=== PATIENT | female | born 1960 | race Caucasian/White ===

== ENCOUNTER → 2018-02-03 | Outpatient (CLI) | payer BC ==
--- NOTE | 2018-02-04 11:03 | Diagnostic Imaging Report ---
INDICATION: Routine screening. COMPARISON: 06/06/2015 and 06/04/2014. TECHNIQUE: 2D and 3D bilateral screening mammography was performed with CAD. FINDINGS: Both breasts remain heterogeneously dense, limiting the sensitivity of mammography. The parenchymal pattern is stable. No mass or malignant appearing microcalcifications are seen. The axillae are unremarkable. IMPRESSION: No mammographic features suspicious for malignancy are identified. ACR BI-RADS Category 1: Negative. Result letter will be mailed to the patient. Note: At least 10% of breast cancer is not imaged by mammography. Dictated by: Dictated on workstation # [id number]
== END ==
LOC: RAD 14:28
PROVIDERS: ATTEND Nurse Practitioner Primary Care
DX: Z12.31 Encounter for screening mammogram for malignant neoplasm of breast (principal)
CPT/HCPCS: 77067

== ENCOUNTER → 2018-05-02 | Outpatient (CLI) | payer BC ==
--- NOTE | 2018-05-02 12:18 | Diagnostic Imaging Report ---
PROCEDURE: CT abdomen and pelvis without contrast. TECHNIQUE: Multiple contiguous axial images were obtained through the abdomen and pelvis without the use of intravenous contrast. INDICATION: Urinary tract infection. FINDINGS: The previous CT abdomen/pelvis exam of 09/17/2013 failed to show any sign of an acute abnormality of the abdomen or pelvis. There was no evidence for nephrolithiasis either. On this study, there is still no evidence for a calculus within the right kidney, but there is a 1-2 mm nonobstructive calculus in the inferior pole of the left kidney. There is no evidence for urolithiasis, and the kidneys do not appear to be obstructed. There is no sign of a solid renal mass either. There is a 6 mm rounded area of low density in the dome of the liver. This finding was present on the prior exam and does not seem to have changed significantly. I suspect that this is a small cyst. The prior exam did suggest fatty metamorphosis of the liver. That finding is not as conspicuous on this exam. The liver is otherwise unremarkable. The spleen, pancreas, adrenals, gallbladder, aorta, and inferior vena cava are unremarkable for an acute abnormality. The stomach is partially filled with particulate matter and consequently difficult to assess. The appendix was visualized and is not abnormally thickened. There does appear to be a fair amount of fecal material throughout the colon. There is no pelvic mass or free fluid collection noted. The uterus and urinary bladder are grossly unremarkable. The bone windows show no sign of a fracture or of a destructive lesion. The lung bases are clear. IMPRESSION: 1. There is no evidence for an acute abnormality of the abdomen or pelvis. 2. There is a 1-2 mm nonobstructive calculus within the left kidney. 3. The rounded area of low density in the dome of the liver is most likely a cyst. Dictated by: Dictated on workstation # [id number]
== END ==
LOC: RAD 09:02
PROVIDERS: ATTEND Nurse Practitioner Primary Care
DX: N20.0 Calculus of kidney (principal); K76.89 Other specified diseases of liver; N39.0 Urinary tract infection, site not specified
CPT/HCPCS: 74176

== ENCOUNTER → 2018-05-12 | Outpatient (CLI) | payer BC ==
--- NOTE | 2018-05-12 14:13 | Diagnostic Imaging Report ---
INDICATION: Nephrolithiasis. FINDINGS: Bowel gas pattern is nonspecific. There are no abnormal abdominal calcifications. Osseous structures are unremarkable. IMPRESSION: 1. Nonspecific bowel gas pattern. 2. No definite stones appreciated by plain film radiography. Dictated by: Dictated on workstation # [id number]
== END ==
LOC: RAD 13:15
PROVIDERS: ATTEND Urology
DX: N20.0 Calculus of kidney (principal)
CPT/HCPCS: 74018

== ENCOUNTER 2018-07-29 11:17 | Emergency (ER) | payer BC ==
[~2018-07-29] VITALS: Ht 160 cm; Wt 56.7 kg
--- OUTSIDE RECORDS SUMMARY | 2018-07-29 11:22 | XMS REPORT ---
Author Author SOFÍA LEWIS [facility] Address [address] [place] [address] Care Team Providers Care Video And Sound Recorder Name Role Phone SOFÍA LEWIS Unavailable PROBLEMS Type Condition ICD9-CM Code JUK50-SX Code Onset Dates Condition Status SNOMED Code Problem HTN (hypertension) I10 Active 32772591 Problem Renal calculus, left N20.0 Active 96008058 Problem Chronic left hip pain M25.552 Active 01566096 Problem Mixed hyperlipidemia E78.2 Active 775754530 Problem Diabetic polyneuropathy associated with type 2 diabetes mellitus E11.42 Active 162358191 Problem Insomnia, unspecified type G47.00 Active 807670085 Problem Piriformis muscle pain M79.1 Active 00745054 Problem Type 2 diabetes mellitus without complication, without long-term current use of insulin E11.9 Active 324174633 Problem Chest wall pain R07.89 Active 168452679 ALLERGIES Substance Reaction Event Type Date Status Sulfamethoxazole Unknown Drug Allergy Apr, Active Lyrica crying/increased emotions Drug Allergy Apr, Active Lisinopril cough Drug Allergy Apr, Active ENCOUNTERS Encounter Location Date Diagnosis [facility] [place] [id number] [place] [address] May, Increased urinary frequency R35.0 ; Frequent UTI N39.0 ; Renal calculus, left N20.0 ; Encounter for hepatitis C screening test for low risk patient Z11.59 and Chronic left hip pain M25.552 [facility] [place] [id number] [place] [address] 73711- 2448 Apr, Dysuria R30.0 [facility] [place] [address] [place] [address] 05328- 9128 Apr, Hx of renal calculi Z87.442 and Dysuria R30.0 [place] [address], [place] [address] 24 Apr, 2018 Dysuria R30.0 and Hx of renal calculi Z87.442 [place] [id number] [place] [address] 86242- 7689 Apr, [place] [id number] [place] [address] 59799- 5090 Apr, Lower urinary tract symptoms R39.9 [place] [id number] [place] [address] 87664- 8706 Mar, Acute cystitis with hematuria N30.01 [place] [id number] [place] [address] 89946- 0045 Mar, [place] [id number] [place] [address] 73745- 4611 Mar, [place] [id number] [place] [address] 43566- 1263 Mar, [place] [id number] [place] [address] 54884- 2104 Mar, Type 2 diabetes mellitus without complication, without long- term current use of insulin E11.9 ; HTN (hypertension) I10 ; Diabetic polyneuropathy associated with type 2 diabetes mellitus E11.42 ; Insomnia, unspecified type G47.00 ; High risk medication use Z79.899 and Mixed hyperlipidemia E78.2 [place] [address] [place] [address] 70526- 4434 Mar, Type 2 diabetes mellitus without complication, without long- term current use of insulin E11.9 ; HTN (hypertension) I10 and Diabetic polyneuropathy associated with type 2 diabetes mellitus E11.42 [place] [address] [place] [address] 77703- 1023 Feb, [place] [id number] [place] [address] 57981- 1419 Jan, [place] [address] [address]27- 5799 Jan, Type 2 diabetes mellitus without complication, without long- term current use of insulin E11.9 ; HTN (hypertension) I10 and Diabetic polyneuropathy associated with type 2 diabetes mellitus E11.42 [place] [address] [address]70- 1455 December, Well woman exam (no gynecological exam) Z00.00 ; Hyperglycemia R73.9 and Type 2 diabetes mellitus without complication, without long-term current use of insulin E11.9 [place] [address] 23837- 7544 Nov, Type 2 diabetes mellitus without complication, without long- term current use of insulin E11.9 [place] [address] 64987- 3635 Nov, Chest wall pain R07.89 ; Insomnia, unspecified type G47.00 and Allergic state, initial encounter T78.40XA [place] [address] 87270- 2671 Jul, Insomnia, unspecified type G47.00 and Rib pain on left side R07.81 [place] [address] 52288- 7124 Jun, Insomnia, unspecified type G47.00 [facility] [address] [address] Apr, Fluid level behind tympanic membrane of both ears H65.93 [place] [address] 91805- 7233 Apr, [facility] [address] [address] Apr, Acute suppurative otitis media of left ear without spontaneous rupture of tympanic membrane, recurrence not specified H66.002 [place] [address] 66202- 6744 Mar, Insomnia, unspecified type G47.00 ; Piriformis muscle pain M79.1 ; Costochondritis M94.0 and Rib pain on left side R07.81 [facility] [place] [id number] [place] [address] 60388- 0469 Feb, Rib pain on left side R07.81 [facility] [place] [id number] [place] [address] 40290- 0397 Jan, Costochondritis M94.0 [facility] [id number] [place] [address] 62722 -9509 Jan, Costochondritis M94.0 [facility] [place] [id number] [place] [address] 51559- 7477 December, Insomnia, unspecified type G47.00 and Piriformis muscle pain M79.1 [place] [id number] [place] [address] 95137- 4162 Jul, Insomnia, unspecified type G47.00 and Piriformis muscle pain M79.1 [place] [id number] [place] [address] 86089- 6463 May, [place] [id number] [place] [address] 86192- 3209 Feb, [facility] [place] [id number] [place] [address] 40122- 4753 Jan, Wellness examination Z00.00 ; Insomnia, unspecified type G47.00 and Piriformis muscle pain M79.1 [place] [id number] [place] [address] 71582- 5363 Jun, [facility] [place] [id number] [place] [address] 40314- 9892 Apr, Hypertension 401.9 ; Insomnia 780.52 ; Screening breast examination V76.10 and Hip pain 719.45 IMMUNIZATIONS No Known Immunizations SOCIAL HISTORY Never Assessed REASON FOR VISIT UTI symptoms-Vira Pt states she has taken Macrobid, but still having tingling after urinating. States she has to push hard to urinate PLAN OF CARE Activity Details Follow Up if not improving or regular follow up with pcp Reason: VITAL SIGNS Height 63.0 in 2018-04-28 Weight 127.4 lbs 2018-04-28 Temperature 97.4 degrees Fahrenheit 2018-04-28 Heart Rate 100 bpm 2018-04-28 Respiratory Rate 18 2018-04-28 BMI 22.57 kg/m2 2018-04-28 Blood pressure systolic 128 mmHg 2018-04-28 Blood pressure diastolic 72 mmHg 2018-04-28 MEDICATIONS Medication Instructions Dosage Frequency Start Date End Date Duration Status Aspirin Adult Low Dose 81 MG Orally Once a day 1 tablet 24h Active Cipro 500 mg Orally every 12 hrs 1 tablet 12h Apr, Apr, 3 days Active Assure Comfort Lancets 28G 1 subcutaneously Once a day as directed 24h December, Active Tamsulosin HCl 0.4 MG Orally Once a day in the evening 1 capsule Apr, May, 30 day(s) Active iGlucose Test Strips 1 subcutaneously Once a day as directed 24h December, 30 days Active Ambien 10 mg Orally Once a day 1 tablet at bedtime as needed 24h Apr, 30 days Active MetFORMIN HCl ER 500 mg Orally twice a day 20 min before meals 2 tablet December, 30 day(s) Active Magnesium 200 mg Orally Once a day 1 tablet 24h Active Percocet 10-325 MG Orally every 6 hrs 1 tablet as needed 6h Active Losartan Potassium Apr, Active RESULTS No Results PROCEDURES Procedure Date Ordered Result Body Site URINALYSIS, AUTO, W/O SCOPE Apr 28, 2018 URINE CULTURE/COLONY COUNT Apr 28, 2018 INSTRUCTIONS MEDICATIONS ADMINISTERED No Known Medications MEDICAL (GENERAL) HISTORY Type Description Date Medical History kidney stones Medical History insomnia Medical History chronic pain to right posterior hip from torn ligament Medical History rib injury Medical History neuropathy-knees and left leg in hamstring area-comes and goes Surgical History kidney stone basket approx 2003 Surgical History left shoulder tendon release 2007
--- OUTSIDE RECORDS SUMMARY | 2018-07-29 11:22 | XMS REPORT ---
Author Author SOFÍA LEWIS [facility] Address [address] [place] [address] Care Team Providers Care Gluer Machine Operator Name Role Phone SOFÍA LEWIS Unavailable PROBLEMS Type Condition ICD9-CM Code GQF40-RY Code Onset Dates Condition Status SNOMED Code Problem HTN (hypertension) I10 Active 13078223 Problem Renal calculus, left N20.0 Active 87832936 Problem Chronic left hip pain M25.552 Active 82267884 Problem Mixed hyperlipidemia E78.2 Active 597423614 Problem Diabetic polyneuropathy associated with type 2 diabetes mellitus E11.42 Active 131329392 Problem Insomnia, unspecified type G47.00 Active 127191406 Problem Piriformis muscle pain M79.1 Active 68765224 Problem Type 2 diabetes mellitus without complication, without long-term current use of insulin E11.9 Active 335654004 Problem Chest wall pain R07.89 Active 724297200 ALLERGIES Substance Reaction Event Type Date Status Sulfamethoxazole Unknown Drug Allergy May, Active Lyrica crying/increased emotions Drug Allergy May, Active Lisinopril cough Drug Allergy May, Active ENCOUNTERS Encounter Location Date Diagnosis [facility] [id number] [place] [address] 94144- 6176 May, Increased urinary frequency R35.0 ; Frequent UTI N39.0 ; Renal calculus, left N20.0 ; Encounter for hepatitis C screening test for low risk patient Z11.59 and Chronic left hip pain M25.552 [facility] [id number] [place] [address] 02333- 3044 Apr, Dysuria R30.0 [facility] [address] [place] [address] 17573- 3759 Apr, Hx of renal calculi Z87.442 and Dysuria R30.0 [place] [address], [place] [address] 24 Apr, 2018 Dysuria R30.0 and Hx of renal calculi Z87.442 [place] [id number] [place] [address] 43473- 6860 Apr, [place] [address] [id number] [place] [address] 25299- 8709 Apr, Lower urinary tract symptoms R39.9 [place] [address] [id number] [place] [address] 19395- 7272 Mar, Acute cystitis with hematuria N30.01 [place] [address] [id number] [place] [address] 93564- 4812 Mar, [place] [id number] [place] [address] 93821- 8257 Mar, [place] [address] [id number] [place] [address] 49913- 3184 Mar, [place] [address] [id number] [place] [address] 89466- 6540 Mar, Type 2 diabetes mellitus without complication, without long- term current use of insulin E11.9 ; HTN (hypertension) I10 ; Diabetic polyneuropathy associated with type 2 diabetes mellitus E11.42 ; Insomnia, unspecified type G47.00 ; High risk medication use Z79.899 and Mixed hyperlipidemia E78.2 [place] [address] [place] [address] 24444- 2035 Mar, Type 2 diabetes mellitus without complication, without long- term current use of insulin E11.9 ; HTN (hypertension) I10 and Diabetic polyneuropathy associated with type 2 diabetes mellitus E11.42 [place] [address] [place] [address] 01651- 8594 Feb, [place] [id number] [place] [address] 90155- 6480 Jan, [place] [address] 00351- 8913 Jan, Type 2 diabetes mellitus without complication, without long- term current use of insulin E11.9 ; HTN (hypertension) I10 and Diabetic polyneuropathy associated with type 2 diabetes mellitus E11.42 [place] [address] 70194- 7104 December, Well woman exam (no gynecological exam) Z00.00 ; Hyperglycemia R73.9 and Type 2 diabetes mellitus without complication, without long-term current use of insulin E11.9 [place] [address] 46459- 5516 Nov, Type 2 diabetes mellitus without complication, without long- term current use of insulin E11.9 [place] [address] 63091- 4863 Nov, Chest wall pain R07.89 ; Insomnia, unspecified type G47.00 and Allergic state, initial encounter T78.40XA [place] [address] 58472- 5446 Jul, Insomnia, unspecified type G47.00 and Rib pain on left side R07.81 [place] [address] 47770- 7642 Jun, Insomnia, unspecified type G47.00 [facility] [address] [address] Apr, Fluid level behind tympanic membrane of both ears H65.93 [place] [address] 26996- 6985 Apr, [facility] [address] 58[address] -[address]85 Apr, Acute suppurative otitis media of left ear without spontaneous rupture of tympanic membrane, recurrence not specified H66.002 [place] [address] 34532- 9724 Mar, Insomnia, unspecified type G47.00 ; Piriformis muscle pain M79.1 ; Costochondritis M94.0 and Rib pain on left side R07.81 [facility] [id number] [place] [address] 34792- 8979 Feb, Rib pain on left side R07.81 [facility] [id number] [place] [address] 78028- 9354 Jan, Costochondritis M94.0 [facility] [id number] [place] [address] 44752 -7364 Jan, Costochondritis M94.0 [facility] [id number] [place] [address] 51766- 9019 December, Insomnia, unspecified type G47.00 and Piriformis muscle pain M79.1 [place] [id number] [place] [address] 36124- 3033 Jul, Insomnia, unspecified type G47.00 and Piriformis muscle pain M79.1 [facility] [id number] [place] [address] 95956- 8901 May, [facility] [id number] [place] [address] 90172- 6714 Feb, [facility] [id number] [place] [address] 62195- 7001 Jan, Wellness examination Z00.00 ; Insomnia, unspecified type G47.00 and Piriformis muscle pain M79.1 [facility] [id number] [place] [address] 66681- 7547 Jun, [facility] [id number] [place] [address] 41055- 6005 Apr, Hypertension 401.9 ; Insomnia 780.52 ; Screening breast examination V76.10 and Hip pain 719.45 IMMUNIZATIONS No Known Immunizations SOCIAL HISTORY Never Assessed REASON FOR VISIT uti f/u. Pt states she is not any better. She had a scan on 05/02/18 and it showed she also has kidney stones. CJ Velez PLAN OF CARE Activity Details Follow Up 3 Months Reason: Pending Test HEP C ANTIBODY W/ REFLEX HCV Pending Test CULTURE, URINE VITAL SIGNS Height 63.0 in 2018-05-09 Weight 127.9 lbs 2018-05-09 Temperature 97.9 degrees Fahrenheit 2018-05-09 Heart Rate 81 bpm 2018-05-09 Respiratory Rate 18 2018-05-09 BMI 22.65 kg/m2 2018-05-09 Blood pressure systolic 162 mmHg 2018-05-09 Blood pressure diastolic 80 mmHg 2018-05-09 MEDICATIONS Medication Instructions Dosage Frequency Start Date End Date Duration Status Assure Comfort Lancets 28G 1 subcutaneously Once a day as directed 24h December, Active Magnesium 200 mg Orally Once a day 1 tablet 24h Active Ambien 10 mg Orally Once a day 1 tablet at bedtime as needed 24h Apr, 30 days Active Cipro 250 MG Orally every 12 hrs 1 tablet 12h May, May, 5 days Active iGlucose Test Strips 1 subcutaneously Once a day as directed 24h December, 30 days Active Aspirin Adult Low Dose 81 MG Orally Once a day 1 tablet 24h Active Losartan Potassium Apr, Active Percocet 10-325 MG Orally 3 times a day 1 tablet as needed 8h May, Jun, 28 days Active Tamsulosin HCl 0.4 MG Orally Once a day in the evening 1 capsule Apr, May, 30 day(s) Active MetFORMIN HCl ER 500 mg Orally twice a day 20 min before meals 2 tablet December, 30 day(s) Active RESULTS Name Result Date Reference Range UA LONG DIP (IN HOUSE) 2018-05-09 Lot # [id number] Exp date 02/2019 Clarity clear Color yellow Odor yes GLU 1+ ALEXANDREA neg KET neg SG 1.005 BLO neg pH 5.5 Protein neg URO 0.2 NIT neg MICHELE neg Lot # Exp date PROCEDURES Procedure Date Ordered Result Body Site URINALYSIS, AUTO, W/O SCOPE May 09, 2018 URINE CULTURE/COLONY COUNT May 09, 2018 HEPATITIS C AB TEST May 09, 2018 INSTRUCTIONS MEDICATIONS ADMINISTERED No Known Medications MEDICAL (GENERAL) HISTORY Type Description Date Medical History kidney stones Medical History insomnia Medical History chronic pain to right posterior hip from torn ligament Medical History rib injury Medical History neuropathy-knees and left leg in hamstring area-comes and goes Surgical History kidney stone basket approx 2003 Surgical History left shoulder tendon release 2008
--- OUTSIDE RECORDS SUMMARY | 2018-07-29 11:22 | XMS REPORT ---
Author Author SOFÍA LEWIS [facility] Address [address] [place] [address] Care Team Providers Care Field Agronomist Name Role Phone SOFÍA LEWIS Unavailable PROBLEMS Type Condition ICD9-CM Code AKE52-DR Code Onset Dates Condition Status SNOMED Code Problem HTN (hypertension) I10 Active 88498544 Problem Renal calculus, left N20.0 Active 34819645 Problem Chronic left hip pain M25.552 Active 29947302 Problem Mixed hyperlipidemia E78.2 Active 562929649 Problem Diabetic polyneuropathy associated with type 2 diabetes mellitus E11.42 Active 954037727 Problem Insomnia, unspecified type G47.00 Active 577106520 Problem Piriformis muscle pain M79.1 Active 83626056 Problem Type 2 diabetes mellitus without complication, without long-term current use of insulin E11.9 Active 614669143 Problem Chest wall pain R07.89 Active 174074955 ALLERGIES No Information ENCOUNTERS Encounter Location Date Diagnosis [facility] [id number] [place] [address] 11095- 1074 May, Increased urinary frequency R35.0 ; Frequent UTI N39.0 ; Renal calculus, left N20.0 ; Encounter for hepatitis C screening test for low risk patient Z11.59 and Chronic left hip pain M25.552 [facility] [id number] [place] [address] 12629- 9107 Apr, Dysuria R30.0 [facility] [address] [place] [id number] [place] [address] 17669- 4887 Apr, Hx of renal calculi Z87.442 and Dysuria R30.0 [facility] [address] [place] [address] 87241- 1473 Apr, Dysuria R30.0 and Hx of renal calculi Z87.442 [place] [address] [address] 9[address] Apr, [place] [address] [place] [address] [id number] [place] [address] 35428- 4082 Apr, Lower urinary tract symptoms R39.9 [place] [address] [id number] [place] [address] 98317- 7073 Mar, Acute cystitis with hematuria N30.01 [place] [address] [id number] [place] [address] 32973- 0644 Mar, [place] [address] [place] [address] [id number] [place] [address] 39530- 5988 Mar, [place] [address] [address] [id number] [place] [address] 16802- 1639 Mar, [place] [address] [address] [id number] [place] [address] 96941- 9835 Mar, Type 2 diabetes mellitus without complication, without long- term current use of insulin E11.9 ; HTN (hypertension) I10 ; Diabetic polyneuropathy associated with type 2 diabetes mellitus E11.42 ; Insomnia, unspecified type G47.00 ; High risk medication use Z79.899 and Mixed hyperlipidemia E78.2 [place] [address] [address] 2332 Mar, Type 2 diabetes mellitus without complication, without long- term current use of insulin E11.9 ; HTN (hypertension) I10 and Diabetic polyneuropathy associated with type 2 diabetes mellitus E11.42 [place] [address], [place] [address]- 8578 Feb, [place] [address] [place] [address] [id number] [place] [address] 43551- 2068 Jan, [place] [address] [address]- 7906 Jan, Type 2 diabetes mellitus without complication, without long- term current use of insulin E11.9 ; HTN (hypertension) I10 and Diabetic polyneuropathy associated with type 2 diabetes mellitus E11.42 [place] [address] 18396- 0147 December, Well woman exam (no gynecological exam) Z00.00 ; Hyperglycemia R73.9 and Type 2 diabetes mellitus without complication, without long-term current use of insulin E11.9 [place] [address] 12512- 3867 Nov, Type 2 diabetes mellitus without complication, without long- term current use of insulin E11.9 [place] [address] 29905- 7683 Nov, Chest wall pain R07.89 ; Insomnia, unspecified type G47.00 and Allergic state, initial encounter T78.40XA [address] 17727- 8251 Jul, Insomnia, unspecified type G47.00 and Rib pain on left side R07.81 [place] [address] 46046- 1124 Jun, Insomnia, unspecified type G47.00 [facility] [address] [place] [address] 26233 -4839 22 Apr, 2017 Fluid level behind tympanic membrane of both ears H65.[address] 35659- 6374 Apr, [facility] [address] [place] [address] 68200 -8178 11 Apr, 2017 Acute suppurative otitis media of left ear without spontaneous rupture of tympanic membrane, recurrence not specified H66.[address] 92567- 6346 23 Mar, 2017 Insomnia, unspecified type G47.00 ; Piriformis muscle pain M79.1 ; Costochondritis M94.0 and Rib pain on left side R07.81 [place] [address] [address]- 9658 Feb, Rib pain on left side R07.81 [facility] [id number] [place] [address] 01135- 1963 Jan, Costochondritis M94.0 [facility] [id number] [place] [address] 51076 -5870 Jan, Costochondritis M94.0 [facility] [address] [id number] [place] [address] 33868- 0823 December, Insomnia, unspecified type G47.00 and Piriformis muscle pain M79.1 [place] [address] [id number] [place] [address] 94255- 0445 Jul, Insomnia, unspecified type G47.00 and Piriformis muscle pain M79.1 [place] [address] [id number] [place] [address] 36622- 8774 May, [place] [address] [id number] [place] [address] 65258- 2869 Feb, [place] [address] [id number] [place] [address] 21752- 5422 Jan, Wellness examination Z00.00 ; Insomnia, unspecified type G47.00 and Piriformis muscle pain M79.1 [place] [address] [id number] [place] [address] 87994- 2197 Jun, [place] [address] [id number] [place] [address] 56858- 0793 Apr, Hypertension 401.9 ; Insomnia 780.52 ; Screening breast examination V76.10 and Hip pain 719.45 IMMUNIZATIONS No Known Immunizations SOCIAL HISTORY Never Assessed REASON FOR VISIT Requests return call PLAN OF CARE VITAL SIGNS MEDICATIONS Medication Instructions Dosage Frequency Start Date End Date Duration Status Cipro 500 mg Orally every 12 hrs 1 tablet 12h 28 Apr, 2018 May, 7 days Active RESULTS No Results PROCEDURES No Known procedures INSTRUCTIONS MEDICATIONS ADMINISTERED No Known Medications MEDICAL [...]
--- OUTSIDE RECORDS SUMMARY | 2018-07-29 11:22 | XMS REPORT ---
Author Author SOFÍA LEWIS [facility] Address [address] [place] [address] Care Team Providers Care Exhibit Technician Name Role Phone SOFÍA LEWIS Unavailable PROBLEMS Type Condition ICD9-CM Code BPG41-FX Code Onset Dates Condition Status SNOMED Code Problem HTN (hypertension) I10 Active 41957229 Problem Renal calculus, left N20.0 Active 19826556 Problem Chronic left hip pain M25.552 Active 81679027 Problem Mixed hyperlipidemia E78.2 Active 616921343 Problem Diabetic polyneuropathy associated with type 2 diabetes mellitus E11.42 Active 627218055 Problem Insomnia, unspecified type G47.00 Active 184302103 Problem Piriformis muscle pain M79.1 Active 37974787 Problem Type 2 diabetes mellitus without complication, without long-term current use of insulin E11.9 Active 988465634 Problem Chest wall pain R07.89 Active 144950734 ALLERGIES No Information ENCOUNTERS Encounter Location Date Diagnosis [place] [address] [place] [address] [id number] [place] [address] 75728- 6666 Jun, [place] [address] [place] [address] [id number] [place] [address] 62099- 6037 Jun, Insomnia, unspecified type G47.00 [facility] [place] [id number] [place] [address] 95268- 9356 May, Increased urinary frequency R35.0 ; Frequent UTI N39.0 ; Renal calculus, left N20.0 ; Encounter for hepatitis C screening test for low risk patient Z11.59 and Chronic left hip pain M25.552 [facility] [place] [id number] [place] [address] 97575- 5857 Apr, Dysuria R30.0 [place] [address] [place] [address]- 7358 Apr, Hx of renal calculi Z87.442 and Dysuria R30.0 [place] [id number] [place] [address] 38459- 2579 24 Apr, 2018 Dysuria R30.0 and Hx of renal calculi Z87.442 [place] [address] [address] [id number] [place] [address] 65364- 9319 Apr, [place] [address] [address] [id number] [place] [address] 91235- 1594 Apr, Lower urinary tract symptoms R39.9 [place] [address] [id number] [place] [address] 09798- 3845 Mar, Acute cystitis with hematuria N30.01 [place] [address] [address] [id number] [place] [address] 37787- 0710 Mar, [place] [address] [address] [id number] [place] [address] 67392- 2113 Mar, [place] [address] [address] [id number] [place] [address] 72616- 9794 Mar, [place] [address] [id number] [place] [address] 81184- 6327 Mar, Type 2 diabetes mellitus without complication, without long- term current use of insulin E11.9 ; HTN (hypertension) I10 ; Diabetic polyneuropathy associated with type 2 diabetes mellitus E11.42 ; Insomnia, unspecified type G47.00 ; High risk medication use Z79.899 and Mixed hyperlipidemia E78.2 [place] [address] [place] [address] 65178- 4901 Mar, Type 2 diabetes mellitus without complication, without long- term current use of insulin E11.9 ; HTN (hypertension) I10 and Diabetic polyneuropathy associated with type 2 diabetes mellitus E11.42 [place] [address] [place] [address] 25367- 7075 Feb, [place] [address] 89672- 9721 Jan, [address] 11639- 7954 Jan, Type 2 diabetes mellitus without complication, without long- term current use of insulin E11.9 ; HTN (hypertension) I10 and Diabetic polyneuropathy associated with type 2 diabetes mellitus E11.[address] 70505- 2876 December, Well woman exam (no gynecological exam) Z00.00 ; Hyperglycemia R73.9 and Type 2 diabetes mellitus without complication, without long-term current use of insulin E11.[address] 55440- 2661 Nov, Type 2 diabetes mellitus without complication, without long- term current use of insulin E11.[address] 07371- 5873 Nov, Chest wall pain R07.89 ; Insomnia, unspecified type G47.00 and Allergic state, initial encounter T78.40XA [address] 36869- 6806 Jul, Insomnia, unspecified type G47.00 and Rib pain on left side R07.[address] 94020- 0604 Jun, Insomnia, unspecified type G47.00 [facility] [address] [place] [address] 58414 -7041 22 Apr, 2017 Fluid level behind tympanic membrane of both ears H65.[address] 31420- 0860 21 Apr, 2017 [facility] [address] [place] [address] 40872 -3782 11 Apr, 2017 Acute suppurative otitis media of left ear without spontaneous rupture of tympanic membrane, recurrence not specified H66.002 [facility] [place] [id number] [place] [address] 01127- 0574 Mar, Insomnia, unspecified type G47.00 ; Piriformis muscle pain M79.1 ; Costochondritis M94.0 and Rib pain on left side R07.81 [facility] [place] [id number] [place] [address] 23336- 8516 Feb, Rib pain on left side R07.81 [facility] [place] [id number] [place] [address] 31557- 9172 Jan, Costochondritis M94.0 [facility] [id number] [place] [address] 73435 -7883 Jan, Costochondritis M94.0 [facility] [place] [id number] [place] [address] 37691- 0889 December, Insomnia, unspecified type G47.00 and Piriformis muscle pain M79.1 [facility] [place] [id number] [place] [address] 05796- 3079 Jul, Insomnia, unspecified type G47.00 and Piriformis muscle pain M79.1 [facility] [place] [address] [id number] [place] [address] 16885- 9085 May, [facility] [place] [address] [address] [id number] [place] [address] 37606- 0151 Feb, [facility] [place] [address] [address] [id number] [place] [address] 72660- 4658 Jan, Wellness examination Z00.00 ; Insomnia, unspecified type G47.00 and Piriformis muscle pain M79.1 [facility] [place] [address] [id number] [place] [address] 90112- 7356 Jun, [facility] [place] [id number] [place] [address] 32122- 6935 Apr, Hypertension 401.9 ; Insomnia 780.52 ; Screening breast examination V76.10 and Hip pain 719.45 IMMUNIZATIONS No Known Immunizations SOCIAL HISTORY Never Assessed REASON FOR VISIT Controlled Refill 07/01/18 PLAN OF CARE VITAL SIGNS MEDICATIONS Medication Instructions Dosage Frequency Start Date End Date Duration Status MetFORMIN HCl ER 500 mg Orally twice a day 20 min before meals 2 tablet December, 30 day(s) Active Losartan Potassium Apr, Active Aspirin Adult Low Dose 81 MG Orally Once a day 1 tablet 24h Active Ambien 10 mg Orally Once a day 1 tablet at bedtime as needed 24h Apr, Active iGlucose Test Strips 1 subcutaneously Once a day as directed 24h December, 30 days Active Assure Comfort Lancets 28G 1 subcutaneously Once a day as directed 24h December, Active Magnesium 200 mg Orally Once a day 1 tablet 24h Active RESULTS No Results PROCEDURES No Known [...]
--- OUTSIDE RECORDS SUMMARY | 2018-07-29 11:22 | XMS REPORT ---
Author Author SOFÍA LEWIS [facility] Address [address] [place] [address] Care Team Providers Care Leather Grainer Name Role Phone SOFÍA LEWIS Unavailable PROBLEMS Type Condition ICD9-CM Code SZK76-XO Code Onset Dates Condition Status SNOMED Code Problem HTN (hypertension) I10 Active 99695777 Problem Renal calculus, left N20.0 Active 78831304 Problem Chronic left hip pain M25.552 Active 22099478 Problem Mixed hyperlipidemia E78.2 Active 228922292 Problem Diabetic polyneuropathy associated with type 2 diabetes mellitus E11.42 Active 814184699 Problem Insomnia, unspecified type G47.00 Active 644088986 Problem Piriformis muscle pain M79.1 Active 91298805 Problem Type 2 diabetes mellitus without complication, without long-term current use of insulin E11.9 Active 943715095 Problem Chest wall pain R07.89 Active 828399941 ALLERGIES No Information ENCOUNTERS Encounter Location Date Diagnosis [place] [address] 14789- 9646 Jun, Diabetic polyneuropathy associated with type 2 diabetes mellitus E11.42 [place] [address] 36763- 3808 Jun, Type 2 diabetes mellitus without complication, without long- term current use of insulin E11.9 ; HTN (hypertension) I10 ; Mixed hyperlipidemia E78.2 ; Diabetic polyneuropathy associated with type 2 diabetes mellitus E11.42 and Insomnia, unspecified type G47.00 [place] [address] [place] [id number] [place] [address] 27185- 3831 Jun, Insomnia, unspecified type G47.00 [place] [address] 65130- 4259 May, Increased urinary frequency R35.0 ; Frequent UTI N39.0 ; Renal calculus, left N20.0 ; Encounter for hepatitis C screening test for low risk patient Z11.59 and Chronic left hip pain M25.552 [place] [address] [place] [id number] [place] [address] 00423- 9786 27 Apr, 2018 Dysuria R30.0 [place] [address] [place] [id number] [place] [address] 20327- 1302 Apr, Hx of renal calculi Z87.442 and Dysuria R30.0 [place] [address] 72192- 7548 24 Apr, 2018 Dysuria R30.0 and Hx of renal calculi Z87.442 [place] [address] [place] [id number] [place] [address] 48124- 3605 Apr, [place] [address] 83513- 3244 Apr, Lower urinary tract symptoms R39.9 [place] [address] [place] [id number] [place] [address] 92362- 6850 Mar, Acute cystitis with hematuria N30.01 [place] [address] [place] [id number] [place] [address] 42352- 3648 Mar, [place] [address] [place] [id number] [place] [address] 49348- 0875 Mar, [place] [address] [place] [id number] [place] [address] 86969- 8829 Mar, [place] [address] [place] [id number] [place] [address] 51196- 3815 Mar, Type 2 diabetes mellitus without complication, without long- term current use of insulin E11.9 ; HTN (hypertension) I10 ; Diabetic polyneuropathy associated with type 2 diabetes mellitus E11.42 ; Insomnia, unspecified type G47.00 ; High risk medication use Z79.899 and Mixed hyperlipidemia E78.2 [place] [address] [place] [id number] [place] [address] 46650- 8396 Mar, Type 2 diabetes mellitus without complication, without long- term current use of insulin E11.9 ; HTN (hypertension) I10 and Diabetic polyneuropathy associated with type 2 diabetes mellitus E11.42 [place] [address] [place] [id number] [place] [address] 64817- 5803 Feb, [place] [address] 65119- 0832 Jan, [place] [address] [place] [id number] [place] [address] 48387- 8174 Jan, Type 2 diabetes mellitus without complication, without long- term current use of insulin E11.9 ; HTN (hypertension) I10 and Diabetic polyneuropathy associated with type 2 diabetes mellitus E11.42 [place] [address] [place] [id number] [place] [address] 44872- 6233 December, Well woman exam (no gynecological exam) Z00.00 ; Hyperglycemia R73.9 and Type 2 diabetes mellitus without complication, without long-term current use of insulin E11.9 [place] [address] [place] [id number] [place] [address] 02839- 4107 Nov, Type 2 diabetes mellitus without complication, without long- term current use of insulin E11.9 [place] [address] [place] [id number] [place] [address] 55568- 8080 Nov, Chest wall pain R07.89 ; Insomnia, unspecified type G47.00 and Allergic state, initial encounter T78.40XA [place] [address] [place] [id number] [place] [address] 63335- 1159 Jul, Insomnia, unspecified type G47.00 and Rib pain on left side R07.81 [place] [address] [place] [id number] [place] [address] 58608- 9942 Jun, Insomnia, unspecified type G47.00 [facility] [address] [place] [id number] [place] [address] 97498 -0151 Apr, Fluid level behind tympanic membrane of both ears H65.93 [facility] [place] [address] [place] [id number] [place] [address] 13419- 2116 Apr, [facility] [address] [place] [id number] [place] [address] 34702 -2015 Apr, Acute suppurative otitis media of left ear without spontaneous rupture of tympanic membrane, recurrence not specified H66.002 [place] [address] 26221- 7344 Mar, Insomnia, unspecified type G47.00 ; Piriformis muscle pain M79.1 ; Costochondritis M94.0 and Rib pain on left side R07.81 [place] [address] [place] [id number] [place] [address] 38347- 1543 Feb, Rib pain on left side R07.81 [place] [address] 23780- 6598 Jan, Costochondritis M94.0 [facility] [address] [place] [id number] [place] [address] 74620 -1697 Jan, Costochondritis M94.0 [place] [address] [place] [id number] [place] [address] 39904- 5577 December, Insomnia, unspecified type G47.00 and Piriformis muscle pain M79.1 [place] [address] [place] [id number] [place] [address] 96232- 9510 Jul, Insomnia, unspecified type G47.00 and Piriformis muscle pain M79.1 [place] [address] [place] [id number] [place] [address] 87010- 0016 May, [place] [address] 30921- 7646 Feb, [place] [address] [place] [id number] [place] [address] 19789- 9392 Jan, Wellness examination Z00.00 ; Insomnia, unspecified type G47.00 and Piriformis muscle pain M79.1 [facility] [place] [address] [facility] [id number] [place] [address]- 5898 Jun, [facility] [place] [address] [facility] [id number] [place] [address]- 5743 Apr, Hypertension 401.9 ; Insomnia 780.52 ; Screening breast examination V76.10 and Hip pain 719.45 IMMUNIZATIONS No Known Immunizations SOCIAL HISTORY Never Assessed REASON FOR VISIT Dose change- due 07/16 PLAN OF CARE VITAL SIGNS MEDICATIONS Medication Instructions Dosage Frequency Start Date End Date Duration Status Assure Comfort Lancets 28G 1 subcutaneously Once a day as directed 24h December, Active Magnesium 200 mg Orally Once a day 1 tablet 24h Active Aspirin Adult Low Dose 81 MG Orally Once a day 1 tablet 24h Active iGlucose Test Strips 1 subcutaneously Once a day as directed 24h December, 30 days Active Losartan Potassium 25 MG Orally Once a day 1 tablet 24h Apr, 90 days Active Ambien 10 mg Orally Once a day 1 tablet at bedtime as needed 24h Jul, Active MetFORMIN HCl ER 500 mg Orally twice a day 20 min before meals 1 tablet December, 30 day(s) Active Percocet 10-325 MG Orally 2 times a day 1 tablet 12h Jun, Active RESULTS No Results PROCEDURES No Known [...] Surgical History left shoulder tendon release 2008 Hospitalization History childbirth
--- OUTSIDE RECORDS SUMMARY | 2018-07-29 11:22 | XMS REPORT ---
Author Author SOFÍA LEWIS [facility] Address [address] [place] [address] Care Team Providers Care Inventory Specialist Manager Name Role Phone SOFÍA LEWIS Unavailable PROBLEMS Type Condition ICD9-CM Code QPH68-FN Code Onset Dates Condition Status SNOMED Code Problem HTN (hypertension) I10 Active 38082955 Problem Renal calculus, left N20.0 Active 20021123 Problem Chronic left hip pain M25.552 Active 93610872 Problem Mixed hyperlipidemia E78.2 Active 467130451 Problem Diabetic polyneuropathy associated with type 2 diabetes mellitus E11.42 Active 575497145 Problem Insomnia, unspecified type G47.00 Active 505076406 Problem Piriformis muscle pain M79.1 Active 07992858 Problem Type 2 diabetes mellitus without complication, without long-term current use of insulin E11.9 Active 990920191 Problem Chest wall pain R07.89 Active 433129441 ALLERGIES Substance Reaction Event Type Date Status Sulfamethoxazole Unknown Drug Allergy Jun, Active Lyrica crying/increased emotions Drug Allergy Jun, Active Lisinopril cough Drug Allergy Jun, Active ENCOUNTERS Encounter Location Date Diagnosis [facility] [address] [place] [address] 87635- 7562 Jun, Diabetic polyneuropathy associated with type 2 diabetes mellitus E11.42 [facility] [address] [place] [address] 77257- 3586 Jun, Type 2 diabetes mellitus without complication, without long- term current use of insulin E11.9 ; HTN (hypertension) I10 ; Mixed hyperlipidemia E78.2 ; Diabetic polyneuropathy associated with type 2 diabetes mellitus E11.42 and Insomnia, unspecified type G47.00 [facility] [address] [place] [address] 58367- 0829 Jun, Insomnia, unspecified type G47.00 [place] [address] [place] [id number] [place] [address] 59631- 3787 05 May, 2018 Increased urinary frequency R35.0 ; Frequent UTI N39.0 ; Renal calculus, left N20.0 ; Encounter for hepatitis C screening test for low risk patient Z11.59 and Chronic left hip pain M25.552 [place] [address] [place] [id number] [place] [address] 34810- 3804 Apr, Dysuria R30.0 [place] [address] [place] [id number] [place] [address] 26614- 9480 Apr, Hx of renal calculi Z87.442 and Dysuria R30.0 [place] [address] [place] [id number] [place] [address] 95904- 1388 Apr, Dysuria R30.0 and Hx of renal calculi Z87.442 [place] [address] [place] [id number] [place] [address] 59903- 3305 Apr, [place] [address] [place] [id number] [place] [address] 81177- 8279 Apr, Lower urinary tract symptoms R39.9 [place] [address] [place] [id number] [place] [address] 22548- 8298 Mar, Acute cystitis with hematuria N30.01 [place] [address] [place] [id number] [place] [address] 24661- 5922 Mar, [place] [address] [place] [id number] [place] [address] 91367- 4710 Mar, [place] [address] [place] [id number] [place] [address] 49946- 4801 Mar, [place] [address] [place] [id number] [place] [address] 06734- 3733 Mar, Type 2 diabetes mellitus without complication, without long- term current use of insulin E11.9 ; HTN (hypertension) I10 ; Diabetic polyneuropathy associated with type 2 diabetes mellitus E11.42 ; Insomnia, unspecified type G47.00 ; High risk medication use Z79.899 and Mixed hyperlipidemia E78.2 [place] [address] 37890- 4009 Mar, Type 2 diabetes mellitus without complication, without long- term current use of insulin E11.9 ; HTN (hypertension) I10 and Diabetic polyneuropathy associated with type 2 diabetes mellitus E11.42 [place] [address] 74739- 1666 Feb, [place] [address] 49681- 9227 Jan, [place] [address] 19104- 8810 Jan, Type 2 diabetes mellitus without complication, without long- term current use of insulin E11.9 ; HTN (hypertension) I10 and Diabetic polyneuropathy associated with type 2 diabetes mellitus E11.42 [place] [address] [place] [id number] [place] [address] 13900- 1092 December, Well woman exam (no gynecological exam) Z00.00 ; Hyperglycemia R73.9 and Type 2 diabetes mellitus without complication, without long-term current use of insulin E11.9 [place] [id number] [place] [address] 07813- 8552 Nov, Type 2 diabetes mellitus without complication, without long- term current use of insulin E11.9 [place] [address] [place] [id number] [place] [address] 71082- 3378 Nov, Chest wall pain R07.89 ; Insomnia, unspecified type G47.00 and Allergic state, initial encounter T78.40XA [address] 59386- 4242 Jul, Insomnia, unspecified type G47.00 and Rib pain on left side R07.[address] 61878- 5295 Jun, Insomnia, unspecified type G47.00 [facility] [address] [id number] [place] [address] 97462 -6797 Apr, Fluid level behind tympanic membrane of both ears H65.93 [facility] [address] [id number] [place] [address] 90169- 5669 Apr, [facility] [address] 81604 -4166 Apr, Acute suppurative otitis media of left ear without spontaneous rupture of tympanic membrane, recurrence not specified H66.002 [place] [address] [place] [id number] [place] [address] 83770- 0641 Mar, Insomnia, unspecified type G47.00 ; Piriformis muscle pain M79.1 ; Costochondritis M94.0 and Rib pain on left side R07.81 [place] [address] [place] [id number] [place] [address] 93480- 5615 Feb, Rib pain on left side R07.81 [place] [address] [place] [id number] [place] [address] 43560- 4066 Jan, Costochondritis M94.0 [facility] [address] [place] [id number] [place] [address] 64869 -1640 Jan, Costochondritis M94.0 [place] [address] [place] [id number] [place] [address] 08925- 1888 December, Insomnia, unspecified type G47.00 and Piriformis muscle pain M79.1 [place] [address] [place] [id number] [place] [address] 80265- 6757 Jul, Insomnia, unspecified type G47.00 and Piriformis muscle pain M79.1 [facility] [address] [place] [id number] [place] [address] 45903- 3199 May, [place] [address] [place] [id number] [place] [address] 45437- 2650 Feb, [place] [address] [facility] [id number] [address] Jan, Wellness examination Z00.00 ; Insomnia, unspecified type G47.00 and Piriformis muscle pain M79.1 [place] [address] [facility] [id number] [address] Jun, [place] [address] [facility] [id number] [address] 1734 Apr, Hypertension 401.9 ; Insomnia 780.52 ; Screening breast examination V76.10 and Hip pain 719.45 IMMUNIZATIONS No Known Immunizations SOCIAL HISTORY Never Assessed REASON FOR VISIT Diabetes Check up- CJ Velez PLAN OF CARE Activity Details Follow Up 3 Months Reason:DM VITAL SIGNS Height 63.0 in 2018-07-02 Weight 129.4 lbs 2018-07-02 Temperature 97.9 degrees Fahrenheit 2018-07-02 Heart Rate 75 bpm 2018-07-02 Respiratory Rate 16 2018-07-02 BMI 22.92 kg/m2 2018-07-02 Blood pressure systolic 118 mmHg 2018-07-02 Blood pressure diastolic 72 mmHg 2018-07-02 MEDICATIONS Medication Instructions Dosage Frequency Start Date End Date Duration Status iGlucose Test Strips 1 subcutaneously Once a day as directed 24h December, 30 days Active Assure Comfort Lancets 28G 1 subcutaneously Once a day as directed 24h December, Active Losartan Potassium 25 MG Orally Once a day 1 tablet 24h 11 Apr, 2018 90 days Active Aspirin Adult Low Dose 81 MG Orally Once a day 1 tablet 24h Active Ambien 10 mg Orally Once a day 1 tablet at bedtime as needed 24h Jul, Active MetFORMIN HCl ER 500 mg Orally twice a day 20 min before meals 1 tablet December, 30 day(s) Active Percocet 5-325 MG Orally 2 times a day 1 tablet 12h Jun, 28 days Active Magnesium 200 mg Orally Once a day 1 tablet 24h Active RESULTS Name Result Date Reference Range A1C (IN HOUSE) 2018-07-02 A1C IN HOUSE 7.9 4.3 - 5.6 % Previous A1c 8.1 Lot [id number] Exp date 10/2019 MICROALBUMIN, URINE (IN HOUSE) 2018-07-02 MICROALBUMIN NORMAL Lot # [id number] Exp date 04/2019 Clarity clear Color yellow ALB 10 CRE 10 A:C (IN HOUSE) <30 Control Control Lot # Exp date PROCEDURES Procedure Date Ordered Result Body Site GLYCATED HEMOGLOBIN TEST Jul 02, 2018 MICROALBUMIN, SEMIQUANT Jul 02, 2018 INSTRUCTIONS MEDICATIONS ADMINISTERED No Known Medications MEDICAL (GENERAL) HISTORY Type Description Date Medical History kidney stones Medical History insomnia Medical History chronic pain to right posterior hip from torn ligament Medical History rib injury Medical History neuropathy-knees and left leg in hamstring area-comes and goes Surgical History kidney stone basket approx 2003 Surgical History left shoulder tendon release 2007 Hospitalization History childbirth
--- OUTSIDE RECORDS SUMMARY | 2018-07-29 11:23 | XMS REPORT ---
Author Author SOFÍA LEWIS [facility] Address [address] [place] [address] Care Team Providers Care Fermenter Wine Name Role Phone SOFÍA LEWIS Unavailable PROBLEMS Type Condition ICD9-CM Code [id number] Code Onset Dates Condition Status SNOMED Code Problem Chronic left hip pain M25.552 Active 08247320 Problem HTN (hypertension) I10 Active 04497575 Problem Mixed hyperlipidemia E78.2 Active 004620615 Problem Diabetic polyneuropathy associated with type 2 diabetes mellitus E11.42 Active 116830757 Problem Insomnia, unspecified type G47.00 Active 894305688 Problem Piriformis muscle pain M79.1 Active 55998251 Problem Type 2 diabetes mellitus without complication, without long-term current use of insulin E11.9 Active 979733908 Problem Chest wall pain R07.89 Active 854607097 ALLERGIES No Information ENCOUNTERS Encounter Location Date Diagnosis [facility] [address] 39852- 1483 Apr, [facility] [address] [place] [id number] [place] [address] 92932- 6654 Apr, Lower urinary tract symptoms R39.9 [facility] [address] [place] [id number] [place] [address] 17395- 9134 Mar, Acute cystitis with hematuria N30.01 [facility] [address] [place] [id number] [place] [address] 54553- 3319 Mar, [facility] [address] 87860- 7384 Mar, [facility] [address] [place] [id number] [place] [address] 86591- 2472 Mar, [facility] [address] [place] [address]- 1774 Mar, Type 2 diabetes mellitus without complication, without long- term current use of insulin E11.9 ; HTN (hypertension) I10 ; Diabetic polyneuropathy associated with type 2 diabetes mellitus E11.42 ; Insomnia, unspecified type G47.00 ; High risk medication use Z79.899 and Mixed hyperlipidemia E78.2 [place] [address] 06877- 3997 Mar, Type 2 diabetes mellitus without complication, without long- term current use of insulin E11.9 ; HTN (hypertension) I10 and Diabetic polyneuropathy associated with type 2 diabetes mellitus E11.42 [place] [address] 90399- 6461 Feb, [place] [address] 08283- 7967 Jan, [place] [address] 55358- 1039 Jan, Type 2 diabetes mellitus without complication, without long- term current use of insulin E11.9 ; HTN (hypertension) I10 and Diabetic polyneuropathy associated with type 2 diabetes mellitus E11.42 [place] [address] 18121- 5990 December, Well woman exam (no gynecological exam) Z00.00 ; Hyperglycemia R73.9 and Type 2 diabetes mellitus without complication, without long-term current use of insulin E11.9 [place] [address] [place] [id number] [place] [address] 19288- 4199 Nov, Type 2 diabetes mellitus without complication, without long- term current use of insulin E11.9 [place] [address] 29202- 4699 Nov, Chest wall pain R07.89 ; Insomnia, unspecified type G47.00 and Allergic state, initial encounter T78.40XA [place] [address] 63126- 7800 Jul, Insomnia, unspecified type G47.00 and Rib pain on left side R07.81 [place] [address] [place] [id number] [place] [address] 21242- 2118 Jun, Insomnia, unspecified type G47.00 [facility] [address] [place] [id number] [place] [address] 61393 -2628 Apr, Fluid level behind tympanic membrane of both ears H65.93 [place] [address] 09874- 3320 Apr, [facility] [address] [place] [id number] [place] [address] 09782 -5542 Apr, Acute suppurative otitis media of left ear without spontaneous rupture of tympanic membrane, recurrence not specified H66.002 [place] [address] [place] [id number] [place] [address] 79975- 1511 Mar, Insomnia, unspecified type G47.00 ; Piriformis muscle pain M79.1 ; Costochondritis M94.0 and Rib pain on left side R07.81 [place] [address] [place] [id number] [place] [address] 80376- 4575 Feb, Rib pain on left side R07.81 [place] [address] [place] [id number] [place] [address] 94037- 9992 Jan, Costochondritis M94.0 [facility] [address] [place] [id number] [place] [address] 21249 -8570 Jan, Costochondritis M94.0 [place] [address] [place] [id number] [place] [address] 80531- 0159 December, Insomnia, unspecified type G47.00 and Piriformis muscle pain M79.1 [place] [address] [place] [id number] [place] [address] 26708- 7376 Jul, Insomnia, unspecified type G47.00 and Piriformis muscle pain M79.1 [place] [address] [place] [id number] [address]- 8296 May, [place] [address] [place] [address]- 5525 Feb, [place] [address] [place] [id number] [place] [address] 13846- 5307 Jan, Wellness examination Z00.00 ; Insomnia, unspecified type G47.00 and Piriformis muscle pain M79.1 [place] [address] [place] [id number] [place] [address] 19315- 4576 Jun, [place] [address] [place] [address]- 4374 Apr, Hypertension 401.9 ; Insomnia 780.52 ; Screening breast examination V76.10 and Hip pain 719.45 IMMUNIZATIONS No Known Immunizations SOCIAL HISTORY Never Assessed REASON FOR VISIT Prior Authorization Approved PLAN OF CARE VITAL SIGNS MEDICATIONS Unknown Medications RESULTS No Results PROCEDURES No Known procedures [...]
--- OUTSIDE RECORDS SUMMARY | 2018-07-29 11:23 | XMS REPORT ---
Author Author SOFÍA LEWSI [facility] Address [address] [place] [address] Care Team Providers Care Architectural Inspector Name Role Phone SOFÍA LEWIS Unavailable PROBLEMS Type Condition ICD9-CM Code KXF30-QG Code Onset Dates Condition Status SNOMED Code Problem Chronic left hip pain M25.552 Active 09660307 Problem HTN (hypertension) I10 Active 80307592 Problem Mixed hyperlipidemia E78.2 Active 566379091 Problem Diabetic polyneuropathy associated with type 2 diabetes mellitus E11.42 Active 802231996 Problem Insomnia, unspecified type G47.00 Active 814415348 Problem Piriformis muscle pain M79.1 Active 74233168 Problem Type 2 diabetes mellitus without complication, without long-term current use of insulin E11.9 Active 034618746 Problem Chest wall pain R07.89 Active 862302890 ALLERGIES Substance Reaction Event Type Date Status Sulfamethoxazole Unknown Drug Allergy Mar, Active Lyrica crying/increased emotions Drug Allergy Mar, Active Lisinopril cough Drug Allergy Mar, Active ENCOUNTERS Encounter Location Date Diagnosis [place] [address] [place] [address] 50624- 7445 Apr, Dysuria R30.0 [facility] [place] [address] [place] [id number] [place] [address] 80769- 6911 Apr, Hx of renal calculi Z87.442 and Dysuria R30.0 [facility] [place] [address] [id number] [place] [address] 03295- 9514 Apr, Dysuria R30.0 and Hx of renal calculi Z87.442 [facility] [place] [address] [place] [address] 15437- 8819 Apr, [facility], [place] [address] [place] [address]- 5346 Apr, Lower urinary tract symptoms R39.9 [place] [address] [place] [id number] [place] [address] 85986- 1652 Mar, Acute cystitis with hematuria N30.01 [place] [address] [place] [id number] [place] [address] 72226- 9316 Mar, [place] [address] [place] [id number] [place] [address] 82404- 2615 Mar, [place] [address] [place] [id number] [place] [address] 45599- 6959 Mar, [place] [address] [place] [id number] [place] [address] 76389- 2077 Mar, Type 2 diabetes mellitus without complication, without long- term current use of insulin E11.9 ; HTN (hypertension) I10 ; Diabetic polyneuropathy associated with type 2 diabetes mellitus E11.42 ; Insomnia, unspecified type G47.00 ; High risk medication use Z79.899 and Mixed hyperlipidemia E78.2 [place] [address] [place] [id number] [place] [address] 02462- 1155 Mar, Type 2 diabetes mellitus without complication, without long- term current use of insulin E11.9 ; HTN (hypertension) I10 and Diabetic polyneuropathy associated with type 2 diabetes mellitus E11.42 [place] [address] [address]- 0168 Feb, [place] [address] [place] [id number] [place] [address] 19866- 5580 Jan, [place] [address] [place] [id number] [place] [address] 95919- 8486 Jan, Type 2 diabetes mellitus without complication, without long- term current use of insulin E11.9 ; HTN (hypertension) I10 and Diabetic polyneuropathy associated with type 2 diabetes mellitus E11.42 [place] [address] [place] [address] 66755- 9209 December, Well woman exam (no gynecological exam) Z00.00 ; Hyperglycemia R73.9 and Type 2 diabetes mellitus without complication, without long-term current use of insulin E11.9 [place] [address] 77812- 9727 Nov, Type 2 diabetes mellitus without complication, without long- term current use of insulin E11.9 [place] [address] 70963- 3941 Nov, Chest wall pain R07.89 ; Insomnia, unspecified type G47.00 and Allergic state, initial encounter T78.40XA [place] [address] 59998- 9919 Jul, Insomnia, unspecified type G47.00 and Rib pain on left side R07.81 [place] [address] 73819- 5529 Jun, Insomnia, unspecified type G47.00 [facility] [address] 98414 -8724 Apr, Fluid level behind tympanic membrane of both ears H65.93 [place] [address] 75959- 0357 21 Apr, 2017 [facility] [place] [address] 07132 -9260 11 Apr, 2017 Acute suppurative otitis media of left ear without spontaneous rupture of tympanic membrane, recurrence not specified H66.002 [place] [address] 10974- 4936 Mar, Insomnia, unspecified type G47.00 ; Piriformis muscle pain M79.1 ; Costochondritis M94.0 and Rib pain on left side R07.81 [place] [address] 61458- 0914 Feb, Rib pain on left side R07.81 [place] [address] 21399- 3257 Jan, Costochondritis M94.0 [facility] [address] [place] [id number] [place] [address] 63262 -0777 Jan, Costochondritis M94.0 [facility] [place] [address] [place] [id number] [place] [address] 35926- 6924 December, Insomnia, unspecified type G47.00 and Piriformis muscle pain M79.1 [facility], [place] [address] [place] [id number] [place] [address] 01083- 1722 Jul, Insomnia, unspecified type G47.00 and Piriformis muscle pain M79.1 [place] [address] [place] [id number] [place] [address] 37581- 6025 May, [facility] [place] [address] [place] [id number] [place] [address] 16048- 8380 Feb, [facility], [place] [address] [place] [id number] [place] [address] 17482- 3218 Jan, Wellness examination Z00.00 ; Insomnia, unspecified type G47.00 and Piriformis muscle pain M79.1 [place] [address] [place] [id number] [place] [address] 79958- 5532 Jun, [facility], [place] [address] [place] [id number] [place] [address] 16974- 7953 Apr, Hypertension 401.9 ; Insomnia 780.52 ; Screening breast examination V76.10 and Hip pain 719.45 IMMUNIZATIONS No Known Immunizations SOCIAL HISTORY Never Assessed REASON FOR VISIT UTI symptoms, blood in urine and states that when she is finished "it feels like chills shoot through her" CJ Velez PLAN OF CARE Activity Details Follow Up if not improving or with pcp for regular fu . if not improving or regular follow up with pcp Reason: VITAL SIGNS Height 63.0 in 2018-04-04 Weight 128.6 lbs 2018-04-04 Temperature 98.2 degrees Fahrenheit 2018-04-04 Heart Rate 87 bpm 2018-04-04 Respiratory Rate 18 2018-04-04 BMI 22.78 kg/m2 2018-04-04 Blood pressure systolic 158 mmHg 2018-04-04 Blood pressure diastolic 90 mmHg 2018-04-04 MEDICATIONS Medication Instructions Dosage Frequency Start Date End Date Duration Status Percocet 10-325 MG Orally 3 times a day 1 tablet 8h 07 Mar, 2018 Apr, 28 days Active Macrobid 100 mg Orally every 12 hrs 1 capsule with food 12h Mar, 5 Apr, 2018 05 days Active Aspirin Adult Low Dose 81 MG Orally Once a day 1 tablet 24h Active MetFORMIN HCl ER 500 mg Orally twice a day 20 min before meals 2 tablet December, 30 day(s) Active iGlucose Test Strips 1 subcutaneously Once a day as directed 24h December, 30 days Active Assure Comfort Lancets 28G 1 subcutaneously Once a day as directed 24h December, Active Magnesium 200 mg Orally Once a day 1 tablet 24h Active Ambien 10 mg Orally Once a day 1 tablet at bedtime as needed 24h Apr, 30 days Active RESULTS No Results PROCEDURES Procedure Date Ordered Result Body Site URINALYSIS, AUTO, W/O SCOPE Apr 04, 2018 URINE CULTURE/COLONY COUNT Apr 04, 2018 INSTRUCTIONS MEDICATIONS ADMINISTERED No Known Medications [...]
--- OUTSIDE RECORDS SUMMARY | 2018-07-29 11:23 | XMS REPORT ---
Author Author SOFÍA LEWIS [facility] Address [address] [place] [address] Care Team Providers Care African History Professor Name Role Phone SOFÍA LEWIS Unavailable PROBLEMS Type Condition ICD9-CM Code [id number] Code Onset Dates Condition Status SNOMED Code Problem Chronic left hip pain M25.552 Active 45217306 Problem HTN (hypertension) I10 Active 65314350 Problem Mixed hyperlipidemia E78.2 Active 094788718 Problem Diabetic polyneuropathy associated with type 2 diabetes mellitus E11.42 Active 611962282 Problem Insomnia, unspecified type G47.00 Active 581878969 Problem Piriformis muscle pain M79.1 Active 12974045 Problem Type 2 diabetes mellitus without complication, without long-term current use of insulin E11.9 Active 520495292 Problem Chest wall pain R07.89 Active 490490379 ALLERGIES Substance Reaction Event Type Date Status Sulfamethoxazole Unknown Drug Allergy Apr, Active Lyrica crying/increased emotions Drug Allergy Apr, Active Lisinopril cough Drug Allergy Apr, Active ENCOUNTERS Encounter Location Date Diagnosis [place] [address] [place] [address] 87183- 7585 Apr, Dysuria R30.0 [facility] [address] [place] [id number] [place] [address] 96862- 5682 Apr, Hx of renal calculi Z87.442 and Dysuria R30.0 [facility] [address] [place] [id number] [place] [address] 09259- 1294 Apr, Dysuria R30.0 and Hx of renal calculi Z87.442 [facility] [address] [place] [address] 30802- 5478 Apr, [facility] [address] [place] [address] 6746 Apr, Lower urinary tract symptoms R39.9 [place] [address] [place] [id number] [place] [address] 70078- 2760 Mar, Acute cystitis with hematuria N30.01 [place] [address] [place] [id number] [place] [address] 30756- 1759 Mar, [place] [address] [place] [id number] [place] [address] 37798- 0070 Mar, [place] [address] [place] [id number] [place] [address] 46383- 9178 Mar, [place] [address] [place] [id number] [place] [address] 81269- 5338 Mar, Type 2 diabetes mellitus without complication, without long- term current use of insulin E11.9 ; HTN (hypertension) I10 ; Diabetic polyneuropathy associated with type 2 diabetes mellitus E11.42 ; Insomnia, unspecified type G47.00 ; High risk medication use Z79.899 and Mixed hyperlipidemia E78.2 [place] [address] [place] [id number] [place] [address] 08226- 2414 Mar, Type 2 diabetes mellitus without complication, without long- term current use of insulin E11.9 ; HTN (hypertension) I10 and Diabetic polyneuropathy associated with type 2 diabetes mellitus E11.42 [place] [address] [address] 9[address] Feb, [place] [address] [place] [id number] [place] [address] 52539- 8898 Jan, [place] [address] [place] [id number] [place] [address] 08609- 8616 Jan, Type 2 diabetes mellitus without complication, without long- term current use of insulin E11.9 ; HTN (hypertension) I10 and Diabetic polyneuropathy associated with type 2 diabetes mellitus E11.42 [place] [address] [place] [address] 02186- 0754 December, Well woman exam (no gynecological exam) Z00.00 ; Hyperglycemia R73.9 and Type 2 diabetes mellitus without complication, without long-term current use of insulin E11.9 [place] [address] 13584- 6422 Nov, Type 2 diabetes mellitus without complication, without long- term current use of insulin E11.9 [place] [address] 89170- 1164 Nov, Chest wall pain R07.89 ; Insomnia, unspecified type G47.00 and Allergic state, initial encounter T78.40XA [place] [address] 51037- 7248 Jul, Insomnia, unspecified type G47.00 and Rib pain on left side R07.81 [place] [address] 76777- 8887 Jun, Insomnia, unspecified type G47.00 [facility] [address] 19969 -8002 Apr, Fluid level behind tympanic membrane of both ears H65.93 [place] [address] 34919- 4732 21 Apr, 2017 [facility] [place] [address] 55141 -6521 11 Apr, 2017 Acute suppurative otitis media of left ear without spontaneous rupture of tympanic membrane, recurrence not specified H66.002 [place] [address] 47471- 8207 Mar, Insomnia, unspecified type G47.00 ; Piriformis muscle pain M79.1 ; Costochondritis M94.0 and Rib pain on left side R07.81 [place] [address] 53027- 7241 Feb, Rib pain on left side R07.81 [place] [address] 68612- 6432 Jan, Costochondritis M94.0 [facility] [address] [place] [address] 47406 -9054 Jan, Costochondritis M94.0 [facility] [address] [place] [id number] [place] [address] 80510- 5406 December, Insomnia, unspecified type G47.00 and Piriformis muscle pain M79.1 [facility] [address] [place] [id number] [place] [address] 79663- 7241 Jul, Insomnia, unspecified type G47.00 and Piriformis muscle pain M79.1 [place] [address] [place] [id number] [place] [address] 36431- 8481 May, [facility] [address] [place] [id number] [place] [address] 64458- 4474 Feb, [facility] [address] [place] [id number] [place] [address] 46541- 2890 Jan, Wellness examination Z00.00 ; Insomnia, unspecified type G47.00 and Piriformis muscle pain M79.1 [place] [address] [place] [id number] [place] [address] 57896- 4473 Jun, [facility] [address] [place] [id number] [place] [address] 53606- 7201 Apr, Hypertension 401.9 ; Insomnia 780.52 ; Screening breast examination V76.10 and Hip pain 719.45 IMMUNIZATIONS No Known Immunizations SOCIAL HISTORY Never Assessed REASON FOR VISIT Pt is here to recheck to see if she has a UTI. She finished her last round of antibitoics a week ago and she still feels like she is "straining to get all of the urine out of her bladder." No burning upon urination.-awoods PLAN OF CARE Activity Details Follow Up if not improving or regular follow up with pcp Reason: VITAL SIGNS Height 63.0 in 2018-04-15 Weight 127.8 lbs 2018-04-15 Temperature 98.5 degrees Fahrenheit 2018-04-15 Heart Rate 86 bpm 2018-04-15 Respiratory Rate 18 2018-04-15 BMI 22.64 kg/m2 2018-04-15 Blood pressure systolic 150 mmHg 2018-04-15 Blood pressure diastolic 78 mmHg 2018-04-15 MEDICATIONS Medication Instructions Dosage Frequency Start Date End Date Duration Status Ambien 10 mg Orally Once a day 1 tablet at bedtime as needed 24h Apr, 30 days Active MetFORMIN HCl ER 500 mg Orally twice a day 20 min before meals 2 tablet December, 30 day(s) Active Percocet 10-325 MG Orally every 6 hrs 1 tablet as needed 6h Active iGlucose Test Strips 1 subcutaneously Once a day as directed 24h December, 30 days Active Aspirin Adult Low Dose 81 MG Orally Once a day 1 tablet 24h Active Losartan Potassium Active Assure Comfort Lancets 28G 1 subcutaneously Once a day as directed 24h December, Active Magnesium 200 mg Orally Once a day 1 tablet 24h Active RESULTS No Results PROCEDURES Procedure Date Ordered Result Body Site URINALYSIS, AUTO, W/O SCOPE Apr 15, 2018 URINE CULTURE/COLONY COUNT Apr 15, 2018 INSTRUCTIONS MEDICATIONS ADMINISTERED No Known Medications [...]
--- OUTSIDE RECORDS SUMMARY | 2018-07-29 11:23 | XMS REPORT ---
Author Author SOFÍA LEWIS [facility] Address [address] [place] [address] Care Team Providers Care Construction Crew Member Name Role Phone SOFÍA LEWIS Unavailable PROBLEMS Type Condition ICD9-CM Code CXV36-PD Code Onset Dates Condition Status SNOMED Code Problem Chronic left hip pain M25.552 Active 04701663 Problem HTN (hypertension) I10 Active 31456256 Problem Mixed hyperlipidemia E78.2 Active 372766478 Problem Diabetic polyneuropathy associated with type 2 diabetes mellitus E11.42 Active 709539374 Problem Insomnia, unspecified type G47.00 Active 925885418 Problem Piriformis muscle pain M79.1 Active 39623916 Problem Type 2 diabetes mellitus without complication, without long-term current use of insulin E11.9 Active 326614888 Problem Chest wall pain R07.89 Active 685144102 ALLERGIES No Information ENCOUNTERS Encounter Location Date Diagnosis [place] [address] 36426- 6358 27 Apr, 2018 Dysuria R30.0 [place] [address] 76137- 9985 Apr, Hx of renal calculi Z87.442 and Dysuria R30.0 [facility] [address] [place] [id number] [place] [address] 30647- 1933 24 Apr, 2018 Dysuria R30.0 and Hx of renal calculi Z87.442 [place] [address] 79718- 8676 Apr, [place] [address] 59649- 9790 11 Apr, 2018 Lower urinary tract symptoms R39.9 [facility] [address] [place] [address]- 3125 Mar, Acute cystitis with hematuria N30.01 [place] [address] [place] [id number] [place] [address] 89108- 8460 Mar, [place] [address] [place] [id number] [place] [address] 01150- 5881 Mar, [place] [address] [place] [id number] [place] [address] 36367- 8743 Mar, [place] [address] [place] [id number] [place] [address] 99186- 6932 Mar, Type 2 diabetes mellitus without complication, without long- term current use of insulin E11.9 ; HTN (hypertension) I10 ; Diabetic polyneuropathy associated with type 2 diabetes mellitus E11.42 ; Insomnia, unspecified type G47.00 ; High risk medication use Z79.899 and Mixed hyperlipidemia E78.2 [place] [address] [place] [id number] [place] [address] 45586- 0585 Mar, Type 2 diabetes mellitus without complication, without long- term current use of insulin E11.9 ; HTN (hypertension) I10 and Diabetic polyneuropathy associated with type 2 diabetes mellitus E11.42 [place] [address] [place] [address] 12653- 8860 Feb, [place] [address] [address]- 8888 Jan, [place] [address] [place] [id number] [place] [address] 10623- 4106 Jan, Type 2 diabetes mellitus without complication, without long- term current use of insulin E11.9 ; HTN (hypertension) I10 and Diabetic polyneuropathy associated with type 2 diabetes mellitus E11.42 [place] [address] [place] [address] 13757- 8856 December, Well woman exam (no gynecological exam) Z00.00 ; Hyperglycemia R73.9 and Type 2 diabetes mellitus without complication, without long-term current use of insulin E11.9 [place] [address] [place] [id number] [place] [address] 28168- 8979 Nov, Type 2 diabetes mellitus without complication, without long- term current use of insulin E11.9 [place] [address] 15380- 5744 Nov, Chest wall pain R07.89 ; Insomnia, unspecified type G47.00 and Allergic state, initial encounter T78.40XA [place] [address] 23694- 9460 Jul, Insomnia, unspecified type G47.00 and Rib pain on left side R07.81 [place] [address] 61846- 2185 Jun, Insomnia, unspecified type G47.[address] [facility] [place] [address] 08119 -8137 Apr, Fluid level behind tympanic membrane of both ears H65.93 [place] [address] 42512- 4017 Apr, [facility] [place] [address] 24932 -1919 Apr, Acute suppurative otitis media of left ear without spontaneous rupture of tympanic membrane, recurrence not specified H66.002 [place] [address] 81268- 6292 Mar, Insomnia, unspecified type G47.00 ; Piriformis muscle pain M79.1 ; Costochondritis M94.0 and Rib pain on left side R07.81 [place] [address] 95127- 3876 Feb, Rib pain on left side R07.81 [place] [address] 97462- 1200 Jan, Costochondritis M94.[address] [facility] [place] [address] 27275 -9462 Jan, Costochondritis M94.0 [place] [address] [place] [id number] [place] [address] 02518- 3475 December, Insomnia, unspecified type G47.00 and Piriformis muscle pain M79.1 [place] [address] [place] [id number] [place] [address] 19464- 4407 Jul, Insomnia, unspecified type G47.00 and Piriformis muscle pain M79.1 [place] [address] [place] [id number] [place] [address] 39078- 5255 May, [place] [address] [place] [id number] [place] [address] 048563- 4553 Feb, [place] [address] [place] [id number] [place] [address] 00413- 9685 Jan, Wellness examination Z00.00 ; Insomnia, unspecified type G47.00 and Piriformis muscle pain M79.1 [place] [address] [place] [id number] [place] [address] 14667- 7576 Jun, [place] [address] [place] [id number] [place] [address] 19299- 6235 Apr, Hypertension 401.9 ; Insomnia 780.52 ; Screening breast examination V76.10 and Hip pain 719.45 IMMUNIZATIONS No Known Immunizations SOCIAL HISTORY Never Assessed REASON FOR VISIT LVM PLAN OF CARE VITAL SIGNS MEDICATIONS Medication Instructions Dosage Frequency Start Date End Date Duration Status Macrobid 100 mg Orally every 12 hrs 1 capsule with food 12h 13 Apr, 2018 Apr, 7 day(s) Active RESULTS No Results PROCEDURES No Known procedures INSTRUCTIONS MEDICATIONS ADMINISTERED No Known Medications MEDICAL (GENERAL) HISTORY Type Description Date Medical History kidney stones Medical History insomnia Medical History chronic pain to right posterior hip from torn ligament Medical History rib injury Medical History neuropathy-knees and left leg in hamstring area-comes and goes Surgical History kidney stone basket approx 2004 Surgical History left shoulder tendon release 2007
--- OUTSIDE RECORDS SUMMARY | 2018-07-29 11:23 | XMS REPORT ---
Author Author SOFÍA LEWIS [facility] Address [address] [place] [address] Care Team Providers Care Hemodialysis Rn Name Role Phone SOFÍA LEWIS Unavailable PROBLEMS Type Condition ICD9-CM Code YDG07-PK Code Onset Dates Condition Status SNOMED Code Problem Chronic left hip pain M25.552 Active 10003808 Problem HTN (hypertension) I10 Active 59889600 Problem Mixed hyperlipidemia E78.2 Active 799326055 Problem Diabetic polyneuropathy associated with type 2 diabetes mellitus E11.42 Active 599660461 Problem Insomnia, unspecified type G47.00 Active 520634764 Problem Piriformis muscle pain M79.1 Active 81009873 Problem Type 2 diabetes mellitus without complication, without long-term current use of insulin E11.9 Active 719782784 Problem Chest wall pain R07.89 Active 848531259 ALLERGIES No Information ENCOUNTERS Encounter Location Date Diagnosis [place] [address] [address]56- 4414 Apr, [facility] [address] [place] [id number] [place] [address] 13884- 8726 Apr, Lower urinary tract symptoms R39.9 [facility] [address] [place] [id number] [place] [address] 55735- 2039 Mar, Acute cystitis with hematuria N30.01 [facility] [address] [place] [id number] [place] [address] 45816- 1988 Mar, [facility] [address] 99150- 7814 Mar, [facility] [address] [place] [id number] [place] [address] 60805- 1011 Mar, [facility] [address] [place] [address]- 7557 Mar, Type 2 diabetes mellitus without complication, without long- term current use of insulin E11.9 ; HTN (hypertension) I10 ; Diabetic polyneuropathy associated with type 2 diabetes mellitus E11.42 ; Insomnia, unspecified type G47.00 ; High risk medication use Z79.899 and Mixed hyperlipidemia E78.2 [place] [address] 61103- 3744 Mar, Type 2 diabetes mellitus without complication, without long- term current use of insulin E11.9 ; HTN (hypertension) I10 and Diabetic polyneuropathy associated with type 2 diabetes mellitus E11.42 [place] [address] 79275- 0181 Feb, [place] [address] 09836- 0226 Jan, [place] [address] 96486- 5013 Jan, Type 2 diabetes mellitus without complication, without long- term current use of insulin E11.9 ; HTN (hypertension) I10 and Diabetic polyneuropathy associated with type 2 diabetes mellitus E11.42 [place] [address] 54619- 6258 December, Well woman exam (no gynecological exam) Z00.00 ; Hyperglycemia R73.9 and Type 2 diabetes mellitus without complication, without long-term current use of insulin E11.9 [place] [address] [place] [id number] [place] [address] 60853- 4361 Nov, Type 2 diabetes mellitus without complication, without long- term current use of insulin E11.9 [place] [address] 05381- 9493 Nov, Chest wall pain R07.89 ; Insomnia, unspecified type G47.00 and Allergic state, initial encounter T78.40XA [place] [address] 59825- 2749 Jul, Insomnia, unspecified type G47.00 and Rib pain on left side R07.81 [place] [address] [place] [id number] [place] [address] 61946- 5029 Jun, Insomnia, unspecified type G47.00 [facility] [address] [place] [id number] [place] [address] 26919 -7415 Apr, Fluid level behind tympanic membrane of both ears H65.93 [place] [address] 06238- 0365 Apr, [facility] [address] [place] [id number] [place] [address] 32625 -0461 Apr, Acute suppurative otitis media of left ear without spontaneous rupture of tympanic membrane, recurrence not specified H66.002 [place] [address] [place] [id number] [place] [address] 47862- 3115 Mar, Insomnia, unspecified type G47.00 ; Piriformis muscle pain M79.1 ; Costochondritis M94.0 and Rib pain on left side R07.81 [place] [address] [place] [id number] [place] [address] 83861- 0598 Feb, Rib pain on left side R07.81 [place] [address] [place] [id number] [place] [address] 97918- 7685 Jan, Costochondritis M94.0 [facility] [address] [place] [id number] [place] [address] 31515 -0675 Jan, Costochondritis M94.0 [place] [address] [place] [id number] [place] [address] 38748- 3164 December, Insomnia, unspecified type G47.00 and Piriformis muscle pain M79.1 [place] [address] [place] [id number] [place] [address] 00017- 2970 Jul, Insomnia, unspecified type G47.00 and Piriformis muscle pain M79.1 [place] [address] [place] [id number] [address]- 9716 May, [place] [address] [place] [address]- 4025 Feb, [place] [address] [place] [address] 21840- 4504 Jan, Wellness examination Z00.00 ; Insomnia, unspecified type G47.00 and Piriformis muscle pain M79.1 [place] [address] [place] [id number] [place] [address] 57553- 5586 Jun, [place] [address] [address]- 6461 Apr, Hypertension 401.9 ; Insomnia 780.52 ; Screening breast examination V76.10 and Hip pain 719.45 IMMUNIZATIONS No Known Immunizations SOCIAL HISTORY Never Assessed REASON FOR VISIT Medication question PLAN OF CARE VITAL SIGNS MEDICATIONS Medication Instructions Dosage Frequency Start Date End Date Duration Status Amitriptyline HCl 25 MG Orally Once a day at HS 1 tablet Mar, 30 day(s) Active RESULTS No Results PROCEDURES No [...]
--- OUTSIDE RECORDS SUMMARY | 2018-07-29 11:23 | XMS REPORT ---
Author Author SOFÍA LEWIS [facility] Address [address] [place] [address] Care Team Providers Care Composing Room Machinist Name Role Phone SOFÍA LEWIS Unavailable PROBLEMS ALLERGIES No Information ENCOUNTERS IMMUNIZATIONS No Known Immunizations SOCIAL HISTORY No smoking Hx information available REASON FOR VISIT PLAN OF CARE VITAL SIGNS MEDICATIONS Unknown Medications RESULTS PROCEDURES No Known procedures INSTRUCTIONS MEDICATIONS ADMINISTERED No Known Medications MEDICAL (GENERAL) HISTORY
--- OUTSIDE RECORDS SUMMARY | 2018-07-29 11:23 | XMS REPORT ---
Author Author SOFÍA LEWIS [facility] Address [address] [place] [address] Care Team Providers Care Mortgage Closer Name Role Phone SOFÍA LEWIS Unavailable PROBLEMS Type Condition ICD9-CM Code XRY54-UL Code Onset Dates Condition Status SNOMED Code Problem Chronic left hip pain M25.552 Active 35048616 Problem HTN (hypertension) I10 Active 75593605 Problem Mixed hyperlipidemia E78.2 Active 081312310 Problem Diabetic polyneuropathy associated with type 2 diabetes mellitus E11.42 Active 824661701 Problem Insomnia, unspecified type G47.00 Active 624218497 Problem Piriformis muscle pain M79.1 Active 11464782 Problem Type 2 diabetes mellitus without complication, without long-term current use of insulin E11.9 Active 820209603 Problem Chest wall pain R07.89 Active 524868056 ALLERGIES Substance Reaction Event Type Date Status Sulfamethoxazole Unknown Drug Allergy Mar, Active Lyrica crying/increased emotions Drug Allergy Mar, Active Lisinopril cough Drug Allergy Mar, Active ENCOUNTERS Encounter Location Date Diagnosis [place] [id number] [place] [address] 84783- 8129 Apr, [facility] [address] [place] [id number] [place] [address] 99493- 5108 Apr, Lower urinary tract symptoms R39.9 [facility] [address] [address] [id number] [place] [address] 29927- 6760 Mar, Acute cystitis with hematuria N30.01 [facility] [address] [id number] [place] [address] 52874- 7250 Mar, [facility] [address] [id number] [place] [address] 70362- 2302 Mar, [place] [address] [place] [id number] [place] [address] 35323- 8520 Mar, [place] [address] [place] [id number] [place] [address] 13815- 7658 Mar, Type 2 diabetes mellitus without complication, without long- term current use of insulin E11.9 ; HTN (hypertension) I10 ; Diabetic polyneuropathy associated with type 2 diabetes mellitus E11.42 ; Insomnia, unspecified type G47.00 ; High risk medication use Z79.899 and Mixed hyperlipidemia E78.2 [place] [address] [place] [id number] [place] [address] 72490- 7786 Mar, Type 2 diabetes mellitus without complication, without long- term current use of insulin E11.9 ; HTN (hypertension) I10 and Diabetic polyneuropathy associated with type 2 diabetes mellitus E11.42 [place] [address] [place] [id number] [place] [address] 08091- 7947 Feb, [place] [address] [place] [id number] [place] [address] 30424- 9042 Jan, [place] [address] [place] [id number] [place] [address] 76609- 1724 Jan, Type 2 diabetes mellitus without complication, without long- term current use of insulin E11.9 ; HTN (hypertension) I10 and Diabetic polyneuropathy associated with type 2 diabetes mellitus E11.42 [place] [address] [place] [id number] [place] [address] 35330- 5226 December, Well woman exam (no gynecological exam) Z00.00 ; Hyperglycemia R73.9 and Type 2 diabetes mellitus without complication, without long-term current use of insulin E11.9 [place] [address] [place] [id number] [place] [address] 41799- 7777 Nov, Type 2 diabetes mellitus without complication, without long- term current use of insulin E11.9 [place] [address] [place] [id number] [place] [address] 61042- 2481 Nov, Chest wall pain R07.89 ; Insomnia, unspecified type G47.00 and Allergic state, initial encounter T78.40XA [facility] [address] 50462- 1067 Jul, Insomnia, unspecified type G47.00 and Rib pain on left side R07.81 [place] [address] 95979- 6827 Jun, Insomnia, unspecified type G47.00 [facility] [address] 07150 -5163 Apr, Fluid level behind tympanic membrane of both ears H65.93 [place] [address] 88784- 6082 Apr, [facility] [place] [address] 83422 -9233 Apr, Acute suppurative otitis media of left ear without spontaneous rupture of tympanic membrane, recurrence not specified H66.002 [place] [address] 13806- 6534 Mar, Insomnia, unspecified type G47.00 ; Piriformis muscle pain M79.1 ; Costochondritis M94.0 and Rib pain on left side R07.81 [place] [address] [place] [id number] [place] [address] 32777- 0019 Feb, Rib pain on left side R07.81 [place] [address] [place] [id number] [place] [address] 05883- 4401 Jan, Costochondritis M94.0 [facility] [place] [address] 88868 -1025 Jan, Costochondritis M94.0 [place] [address] [place] [id number] [place] [address] 39276- 9551 December, Insomnia, unspecified type G47.00 and Piriformis muscle pain M79.1 [place] [address] 75114- 2635 Jul, Insomnia, unspecified type G47.00 and Piriformis muscle pain M79.1 [place] [address] [place] [id number] [address] 0166 May, [facility] [address] [address]- 1416 Feb, [place] [address] [place] [address] 47983- 4995 Jan, Wellness examination Z00.00 ; Insomnia, unspecified type G47.00 and Piriformis muscle pain M79.1 [place] [address] [place] [address] 29438- 0706 Jun, [place] [address] [place] [address] 33730- 8536 Apr, Hypertension 401.9 ; Insomnia 780.52 ; Screening breast examination V76.10 and Hip pain 719.45 IMMUNIZATIONS No Known Immunizations SOCIAL HISTORY Never Assessed REASON FOR VISIT Diabetes f/[id number]--tcuppettRN, --Too early for A1c needs to be after 03/26, -- Neuropathy is getting worse. Was unable to tolerate the Lyrica. PLAN OF CARE Activity Details Follow Up 3 Months Reason:DM VITAL SIGNS Height 63.0 in 2018-03-11 Weight 125.8 lbs 2018-03-11 Temperature 98.5 degrees Fahrenheit 2018-03-11 Heart Rate 76 bpm 2018-03-11 Respiratory Rate 20 2018-03-11 BMI 22.28 kg/m2 2018-03-11 Blood pressure systolic 142 mmHg 2018-03-11 Blood pressure diastolic 80 mmHg 2018-03-11 MEDICATIONS Medication Instructions Dosage Frequency Start Date End Date Duration Status Percocet 10-325 MG Orally 3 times a day 1 tablet 8h Mar, Apr, 28 days Active Aspirin Adult Low Dose 81 MG Orally Once a day 1 tablet 24h Active Ambien 10 mg Orally Once a day 1 tablet at bedtime as needed 24h Apr, 30 days Active Losartan Potassium 25 MG Orally Once a day 1 tablet 24h Jan, Active MetFORMIN HCl ER 500 mg Orally twice a day 20 min before meals 2 tablet December, 30 day(s) Active Magnesium 200 mg Orally Once a day 1 tablet 24h Active iGlucose Test Strips 1 subcutaneously Once a day as directed 24h December, 30 days Active Assure Comfort Lancets 28G 1 subcutaneously Once a day as directed 24h December, Active RESULTS No Results PROCEDURES Procedure Date Ordered Result Body Site GLYCATED HEMOGLOBIN TEST Mar 11, 2018 DRUG TEST PRSMV CHEM ANLYZR Mar 11, 2018 INSTRUCTIONS MEDICATIONS ADMINISTERED No Known Medications [...]
--- OUTSIDE RECORDS SUMMARY | 2018-07-29 11:24 | XMS REPORT ---
Author Author PHILIP FARLEY [facility] Address [address] [place] [address] Care Team Providers Care Shipwright Name Role Phone PHILIP FARLEY Unavailable PROBLEMS Type Condition ICD9-CM Code XBT49-GG Code Onset Dates Condition Status SNOMED Code Problem HTN (hypertension) I10 Active 19430050 Problem Diabetic polyneuropathy associated with type 2 diabetes mellitus E11.42 Active 439080307 Problem Type 2 diabetes mellitus without complication, without long-term current use of insulin E11.9 Active 744033725 Problem Piriformis muscle pain M79.1 Active 74312741 Problem Chronic left hip pain M25.552 Active 10749397 Problem Chest wall pain R07.89 Active 116052814 Problem Insomnia, unspecified type G47.00 Active 112848579 ALLERGIES Substance Reaction Event Type Date Status Sulfamethoxazole Unknown Drug Allergy Nov, Active ENCOUNTERS Encounter Location Date Diagnosis [place] [address] [place] [id number] [place] [address] 75017- 4263 Feb, [facility] [address] [place] [address] [id number] [place] [address] 81009- 9301 Jan, [facility] [address] [place] [address] [id number] [place] [address] 17603- 2507 Jan, Type 2 diabetes mellitus without complication, without long- term current use of insulin E11.9 ; HTN (hypertension) I10 and Diabetic polyneuropathy associated with type 2 diabetes mellitus E11.42 [facility] [address] [id number] [place] [address] 80713- 9839 December, Well woman exam (no gynecological exam) Z00.00 ; Hyperglycemia R73.9 and Type 2 diabetes mellitus without complication, without long-term current use of insulin E11.9 [facility] [address] [place] [id number] [place] [address] 97313- 5200 Nov, Type 2 diabetes mellitus without complication, without long- term current use of insulin E11.9 [place] [address] 83513- 7360 Nov, Chest wall pain R07.89 ; Insomnia, unspecified type G47.00 and Allergic state, initial encounter T78.40XA [place] [address] 56914- 5651 Jul, Insomnia, unspecified type G47.00 and Rib pain on left side R07.81 [place] [address] 28166- 4659 Jun, Insomnia, unspecified type G47.00 [facility] [place] [address] 33184 -3434 Apr, Fluid level behind tympanic membrane of both ears H65.93 [place] [address] 46984- 1778 Apr, [facility] [place] [address] 57389 -1752 Apr, Acute suppurative otitis media of left ear without spontaneous rupture of tympanic membrane, recurrence not specified H66.002 [place] [address] [id number] [place] [address] 08640- 0106 Mar, Insomnia, unspecified type G47.00 ; Piriformis muscle pain M79.1 ; Costochondritis M94.0 and Rib pain on left side R07.81 [place] [address] [id number] [place] [address] 06073- 3199 Feb, Rib pain on left side R07.81 [place] [address] 37887- 7887 Jan, Costochondritis M94.0 [facility] [address] [place] [id number] [place] [address] 44840 -7632 Jan, Costochondritis M94.0 [place] [address], [place] [address]- 4857 December, Insomnia, unspecified type G47.00 and Piriformis muscle pain M79.1 [place] [address] [id number] [place] [address] 82796- 2466 Jul, Insomnia, unspecified type G47.00 and Piriformis muscle pain M79.1 [place] [address] [id number] [place] [address] 13049- 7974 May, [place] [address] [id number] [place] [address] 27376- 4719 Feb, [place] [address] [id number] [place] [address] 73216- 1374 Jan, Wellness examination Z00.00 ; Insomnia, unspecified type G47.00 and Piriformis muscle pain M79.1 [place] [address] [id number] [place] [address] 59468- 3481 Jun, [place] [address] [place] [id number] [place] [address] 92382- 3089 Apr, Hypertension 401.9 ; Insomnia 780.52 ; Screening breast examination V76.10 and Hip pain 719.45 IMMUNIZATIONS No Known Immunizations SOCIAL HISTORY Never Assessed REASON FOR VISIT Transition of Care [facility] PLAN OF CARE Activity Details Follow Up 4 Months Reason: VITAL SIGNS Height 63.0 in 2017-11-19 Weight 133 lbs 2017-11-19 Temperature 98.1 degrees Fahrenheit 2017-11-19 Heart Rate 106 bpm 2017-11-19 Respiratory Rate 20 2017-11-19 BMI 23.56 kg/m2 2017-11-19 Blood pressure systolic 142 mmHg 2017-11-19 Blood pressure diastolic 86 mmHg 2017-11-19 MEDICATIONS Medication Instructions Dosage Frequency Start Date End Date Duration Status Ibuprofen 600 MG Orally Three times a day 1 tablet with food or milk as needed 8h Nov, Active Aspirin Adult Low Dose 81 MG Orally Once a day 1 tablet 24h Active Loratadine-D 12HR 5-120 MG Orally every 12 hrs 1 tablet as needed 12h Active Percocet 10-325 MG Orally 3 times a day 1 tablet 8h 17 Nov, 2017 Active Ambien 10 mg Orally Once a day 1 tablet at bedtime as needed 24h 29 Apr, 2015 Active Magnesium 200 mg Orally twice a day 2 tablets with a meal 12h Active RESULTS No Results PROCEDURES Procedure Date Ordered Result Body Site COMPREHEN METABOLIC PANEL November 19, 2017 INSTRUCTIONS MEDICATIONS ADMINISTERED No Known Medications MEDICAL (GENERAL) HISTORY Type Description Date Medical History kidney stones Medical History insomnia Medical History chronic pain to right posterior hip from torn ligamnet Medical History rib injury Medical History nueropathy-knees and left leg in hamstring area-comes and goes Surgical History kidney stone basket approx 2003 Surgical History left shoulder tendon release 2007
--- OUTSIDE RECORDS SUMMARY | 2018-07-29 11:24 | XMS REPORT ---
Author Author PHILIP FARLEY [facility] Address [address] [place] [address] Care Team Providers Care Portal Developer Name Role Phone PHILIP FARLEY Unavailable PROBLEMS Type Condition ICD9-CM Code KCX69-KB Code Onset Dates Condition Status SNOMED Code Problem HTN (hypertension) I10 Active 84017869 Problem Diabetic polyneuropathy associated with type 2 diabetes mellitus E11.42 Active 453506095 Problem Type 2 diabetes mellitus without complication, without long-term current use of insulin E11.9 Active 232566027 Problem Piriformis muscle pain M79.1 Active 80723096 Problem Chronic left hip pain M25.552 Active 91375791 Problem Chest wall pain R07.89 Active 628613771 Problem Insomnia, unspecified type G47.00 Active 542697099 ALLERGIES No Information ENCOUNTERS Encounter Location Date Diagnosis [place] [address] [place] [id number] [place] [address] 43521- 7381 Feb, [place] [address] [place] [id number] [place] [address] 72713- 0649 Jan, [place] [address] [place] [id number] [place] [address] 84934- 0217 Jan, Type 2 diabetes mellitus without complication, without long- term current use of insulin E11.9 ; HTN (hypertension) I10 and Diabetic polyneuropathy associated with type 2 diabetes mellitus E11.42 [place] [address] [place] [address] [place] [address] 30442- 5506 December, Well woman exam (no gynecological exam) Z00.00 ; Hyperglycemia R73.9 and Type 2 diabetes mellitus without complication, without long-term current use of insulin E11.9 [place] [address] [place] [id number] [place] [address] 42725- 8720 19 Apr, 2018 Type 2 diabetes mellitus without complication, without long- term current use of insulin E11.9 [place] [address] [place] [id number] [place] [address] 86120- 3595 Nov, Chest wall pain R07.89 ; Insomnia, unspecified type G47.00 and Allergic state, initial encounter T78.40XA [place] [address] 25770- 8748 Jul, Insomnia, unspecified type G47.00 and Rib pain on left side R07.81 [place] [address] 65942- 2462 Jun, Insomnia, unspecified type G47.00 [facility] N [address] 91384 -5901 22 Apr, 2017 Fluid level behind tympanic membrane of both ears H65.93 [place] [address] 01903- 0806 Apr, [facility] [address] 57315 -4795 11 Apr, 2017 Acute suppurative otitis media of left ear without spontaneous rupture of tympanic membrane, recurrence not specified H66.002 [place] [address] [place] [id number] [place] [address] 50756- 1318 Mar, Insomnia, unspecified type G47.00 ; Piriformis muscle pain M79.1 ; Costochondritis M94.0 and Rib pain on left side R07.81 [place] [address] [place] [id number] [place] [address] 13268- 7313 Feb, Rib pain on left side R07.81 [place] [address] 96340- 2279 Jan, Costochondritis M94.0 [facility] [address] [place] [id number] [place] [address] 70762 -3273 Jan, Costochondritis M94.0 [place] [address] [place] [address] [address]- 2070 December, Insomnia, unspecified type G47.00 and Piriformis muscle pain M79.1 [place] [address] [place] [id number] [place] [address] 89696110- 8846 Jul, Insomnia, unspecified type G47.00 and Piriformis muscle pain M79.1 [place] [address] [place] [id number] [place] [address] 864035- 9304 May, [place] [address] 825312- 1168 Feb, [place] [address] [place] [id number] [place] [address] 13602- 2698 Jan, Wellness examination Z00.00 ; Insomnia, unspecified type G47.00 and Piriformis muscle pain M79.1 [place] [address] [place] [id number] [place] [address] 45351- 7650 Jun, [place] [address] [place] [id number] [place] [address] 36847- 8270 Apr, Hypertension 401.9 ; Insomnia 780.52 ; Screening breast examination V76.10 and Hip pain 719.45 IMMUNIZATIONS No Known Immunizations SOCIAL HISTORY Never Assessed REASON FOR VISIT PLAN OF CARE VITAL SIGNS MEDICATIONS Medication Instructions Dosage Frequency Start Date End Date Duration Status Metformin HCl 500 mg Orally twice a day 1 tablet with a meal 12h Nov, 30 day(s) Active RESULTS No Results PROCEDURES [...]
--- OUTSIDE RECORDS SUMMARY | 2018-07-29 11:24 | XMS REPORT ---
Author Author SOFÍA LEWIS [facility] Address [address] [place] [address] Care Team Providers Care Host Name Role Phone SOFÍA LEWIS Unavailable PROBLEMS Type Condition ICD9-CM Code EGS22-SL Code Onset Dates Condition Status SNOMED Code Problem Chronic left hip pain M25.552 Active 52051592 Problem HTN (hypertension) I10 Active 88862498 Problem Mixed hyperlipidemia E78.2 Active 866841039 Problem Diabetic polyneuropathy associated with type 2 diabetes mellitus E11.42 Active 830437390 Problem Insomnia, unspecified type G47.00 Active 633920965 Problem Piriformis muscle pain M79.1 Active 24999270 Problem Type 2 diabetes mellitus without complication, without long-term current use of insulin E11.9 Active 691570180 Problem Chest wall pain R07.89 Active 870521352 ALLERGIES No Information ENCOUNTERS Encounter Location Date Diagnosis [place] [id number] 25552- 7659 Apr, [facility] [address] [place] [id number] [place] [address] 01569- 9695 Apr, Lower urinary tract symptoms R39.9 [facility] [address] [place] [id number] [place] [address] 58464- 9985 Mar, Acute cystitis with hematuria N30.01 [facility] [address] [place] [id number] [place] [address] 24820- 1885 Mar, [facility] [address] 08610- 4876 Mar, [facility] [address] [place] [id number] [place] [address] 87853- 7540 Mar, [facility] [address] [place] [address]- 2741 Mar, Type 2 diabetes mellitus without complication, without long- term current use of insulin E11.9 ; HTN (hypertension) I10 ; Diabetic polyneuropathy associated with type 2 diabetes mellitus E11.42 ; Insomnia, unspecified type G47.00 ; High risk medication use Z79.899 and Mixed hyperlipidemia E78.2 [place] [address] 88020- 3774 Mar, Type 2 diabetes mellitus without complication, without long- term current use of insulin E11.9 ; HTN (hypertension) I10 and Diabetic polyneuropathy associated with type 2 diabetes mellitus E11.42 [place] [address] 48548- 5221 Feb, [place] [address] 98126- 9013 Jan, [place] [address] 29365- 1912 Jan, Type 2 diabetes mellitus without complication, without long- term current use of insulin E11.9 ; HTN (hypertension) I10 and Diabetic polyneuropathy associated with type 2 diabetes mellitus E11.42 [place] [address] 33467- 8287 December, Well woman exam (no gynecological exam) Z00.00 ; Hyperglycemia R73.9 and Type 2 diabetes mellitus without complication, without long-term current use of insulin E11.9 [place] [address] [place] [id number] [place] [address] 26558- 7655 Nov, Type 2 diabetes mellitus without complication, without long- term current use of insulin E11.9 [place] [address] 23849- 1241 Nov, Chest wall pain R07.89 ; Insomnia, unspecified type G47.00 and Allergic state, initial encounter T78.40XA [place] [address] 89181- 4327 Jul, Insomnia, unspecified type G47.00 and Rib pain on left side R07.81 [place] [address] [place] [id number] [place] [address] 23738- 7592 Jun, Insomnia, unspecified type G47.00 [facility] [address] [place] [id number] [place] [address] 42185 -6173 Apr, Fluid level behind tympanic membrane of both ears H65.93 [place] [address] 45720- 8530 Apr, [facility] [address] [place] [id number] [place] [address] 02311 -4379 Apr, Acute suppurative otitis media of left ear without spontaneous rupture of tympanic membrane, recurrence not specified H66.002 [place] [address] [place] [address] [place] [address] 86857- 0163 Mar, Insomnia, unspecified type G47.00 ; Piriformis muscle pain M79.1 ; Costochondritis M94.0 and Rib pain on left side R07.81 [place] [address] [place] [id number] [place] [address] 12244- 1460 Feb, Rib pain on left side R07.81 [place] [address] [place] [id number] [place] [address] 50243- 0317 Jan, Costochondritis M94.0 [facility] [address] [place] [id number] [place] [address] 86035 -0003 Jan, Costochondritis M94.0 [place] [address] [place] [id number] [place] [address] 94254- 2950 December, Insomnia, unspecified type G47.00 and Piriformis muscle pain M79.1 [place] [address] [place] [id number] [place] [address] 05684- 5313 Jul, Insomnia, unspecified type G47.00 and Piriformis muscle pain M79.1 [place] [address] [place] [id number] [address]- 2186 May, [place] [address] [address]- 2507 Feb, [place] [address] [place] [id number] [place] [address] 32815- 2908 Jan, Wellness examination Z00.00 ; Insomnia, unspecified type G47.00 and Piriformis muscle pain M79.1 [place] [address] [place] [id number] [place] [address] 60585- 4341 Jun, [place] [address] [address]- 7798 Apr, Hypertension 401.9 ; Insomnia 780.52 ; Screening breast examination V76.10 and Hip pain 719.45 IMMUNIZATIONS No Known Immunizations SOCIAL HISTORY Never Assessed REASON FOR VISIT Update Demographics - Personal Info PLAN OF CARE VITAL SIGNS MEDICATIONS Unknown [...]
--- OUTSIDE RECORDS SUMMARY | 2018-07-29 11:24 | XMS REPORT ---
Author Author SOFÍA LEWIS [facility] Address [address] [place] [address] Care Team Providers Care Bessemer Regulator Name Role Phone SOFÍA LEWIS Unavailable PROBLEMS Type Condition ICD9-CM Code [id number] Code Onset Dates Condition Status SNOMED Code Problem Chronic left hip pain M25.552 Active 10823786 Problem HTN (hypertension) I10 Active 74419187 Problem Mixed hyperlipidemia E78.2 Active 282403765 Problem Diabetic polyneuropathy associated with type 2 diabetes mellitus E11.42 Active 035932283 Problem Insomnia, unspecified type G47.00 Active 419773824 Problem Piriformis muscle pain M79.1 Active 56224265 Problem Type 2 diabetes mellitus without complication, without long-term current use of insulin E11.9 Active 534669645 Problem Chest wall pain R07.89 Active 593252652 ALLERGIES No Information ENCOUNTERS Encounter Location Date Diagnosis [place] [id number] [address] Mar, Acute cystitis with hematuria N30.01 [place] [address] [place] [id number] [place] [address] 95494- 0795 Mar, [place] [address] [place] [id number] [place] [address] 71233- 5096 Mar, [place] [address] [place] [id number] [place] [address] 22817- 3159 Mar, [place] [address] [address]- 75[address] Mar, Type 2 diabetes mellitus without complication, without long- term current use of insulin E11.9 ; HTN (hypertension) I10 ; Diabetic polyneuropathy associated with type 2 diabetes mellitus E11.42 ; Insomnia, unspecified type G47.00 ; High risk medication use Z79.899 and Mixed hyperlipidemia E78.2 [place] [address] [place] [address] 38714- 0860 Mar, Type 2 diabetes mellitus without complication, without long- term current use of insulin E11.9 ; HTN (hypertension) I10 and Diabetic polyneuropathy associated with type 2 diabetes mellitus E11.42 [place] [address] [place] [id number] [place] [address] 23013- 6356 Feb, [place] [address] [place] [id number] [place] [address] 82892- 3333 Jan, [place] [address] [place] [id number] [place] [address] 24295- 0813 Jan, Type 2 diabetes mellitus without complication, without long- term current use of insulin E11.9 ; HTN (hypertension) I10 and Diabetic polyneuropathy associated with type 2 diabetes mellitus E11.42 [place] [address] [place] [id number] [place] [address] 55966- 0177 December, Well woman exam (no gynecological exam) Z00.00 ; Hyperglycemia R73.9 and Type 2 diabetes mellitus without complication, without long-term current use of insulin E11.9 [place] [address] [place] [address] 02773- 1908 Nov, Type 2 diabetes mellitus without complication, without long- term current use of insulin E11.9 [place] [address] [place] [address] 02198- 6895 Nov, Chest wall pain R07.89 ; Insomnia, unspecified type G47.00 and Allergic state, initial encounter T78.40XA [place] [address] [place] [id number] [place] [address] 36460- 1952 Jul, Insomnia, unspecified type G47.00 and Rib pain on left side R07.81 [place] [address] [place] [id number] [place] [address] 81280- 5129 Jun, Insomnia, unspecified type G47.00 [facility] [address] [place] [id number] [place] [address] 44067 -8913 22 Apr, 2017 Fluid level behind tympanic membrane of both ears H65.93 [facility] [address] [place] [id number] [place] [address] 28361- 1951 21 Apr, 2017 [facility] [address] [place] [id number] [place] [address] 44042 -7089 11 Apr, 2017 Acute suppurative otitis media of left ear without spontaneous rupture of tympanic membrane, recurrence not specified H66.002 [place] [address] [place] [id number] [place] [address] 53003- 9585 Mar, Insomnia, unspecified type G47.00 ; Piriformis muscle pain M79.1 ; Costochondritis M94.0 and Rib pain on left side R07.81 [place] [address] [place] [id number] [place] [address] 45300- 5841 Feb, Rib pain on left side R07.81 [place] [address] [place] [id number] [place] [address] 37047- 0038 Jan, Costochondritis M94.0 [facility] [address] [place] [id number] [place] [address] 08234 -1906 Jan, Costochondritis M94.0 [place] [address] [place] [id number] [place] [address] 78896- 4542 December, Insomnia, unspecified type G47.00 and Piriformis muscle pain M79.1 [place] [address] [place] [id number] [place] [address] 10419- 9608 Jul, Insomnia, unspecified type G47.00 and Piriformis muscle pain M79.1 [place] [address] [place] [id number] [place] [address] 90453- 0225 May, [place] [address] [place] [id number] [place] [address] 48590- 1995 Feb, [place] [address] [place] [id number] [place] [address] 97699- 1086 Jan, Wellness examination Z00.00 ; Insomnia, unspecified type G47.00 and Piriformis muscle pain M79.1 [facility] [address] [facility] [id number] [place] [address] 9[address] Jun, [facility] [address] [facility] [id number] [place] [address] 8[address] Apr, Hypertension 401.9 ; Insomnia 780.52 ; Screening breast examination V76.10 and Hip pain 719.45 IMMUNIZATIONS No Known Immunizations SOCIAL HISTORY Never Assessed REASON FOR VISIT update [facility] PLAN OF CARE VITAL SIGNS MEDICATIONS No Known Medications RESULTS No Results PROCEDURES No Known [...]
--- OUTSIDE RECORDS SUMMARY | 2018-07-29 11:24 | XMS REPORT ---
Author Author SOFÍA LEWIS [facility] Address [address] [place] [address] Care Team Providers Care Atmospheric Physicist Name Role Phone SOFÍA LEWIS Unavailable PROBLEMS Type Condition ICD9-CM Code EGA56-TL Code Onset Dates Condition Status SNOMED Code Problem Chronic left hip pain M25.552 Active 14637772 Problem HTN (hypertension) I10 Active 79736983 Problem Mixed hyperlipidemia E78.2 Active 509503774 Problem Diabetic polyneuropathy associated with type 2 diabetes mellitus E11.42 Active 576546577 Problem Insomnia, unspecified type G47.00 Active 758908972 Problem Piriformis muscle pain M79.1 Active 16998690 Problem Type 2 diabetes mellitus without complication, without long-term current use of insulin E11.9 Active 203488240 Problem Chest wall pain R07.89 Active 721961560 ALLERGIES No Information ENCOUNTERS Encounter Location Date Diagnosis [place] [address] [address]- 5139 Apr, [facility] [address] [place] [id number] [place] [address] 08427- 9909 Apr, Lower urinary tract symptoms R39.9 [facility] [address] [place] [id number] [place] [address] 76740- 0357 Mar, Acute cystitis with hematuria N30.01 [facility] [address] [place] [id number] [place] [address] 09941- 9049 Mar, [facility] [address] 09581- 7127 Mar, [facility] [address] [place] [id number] [place] [address] 95216- 8468 Mar, [facility] [address] [place] [address] 9816 Mar, Type 2 diabetes mellitus without complication, without long- term current use of insulin E11.9 ; HTN (hypertension) I10 ; Diabetic polyneuropathy associated with type 2 diabetes mellitus E11.42 ; Insomnia, unspecified type G47.00 ; High risk medication use Z79.899 and Mixed hyperlipidemia E78.2 [place] [address] 03597- 8271 Mar, Type 2 diabetes mellitus without complication, without long- term current use of insulin E11.9 ; HTN (hypertension) I10 and Diabetic polyneuropathy associated with type 2 diabetes mellitus E11.42 [place] [address] 71288- 0680 Feb, [place] [address] 91624- 1574 Jan, [place] [address] 79695- 0292 Jan, Type 2 diabetes mellitus without complication, without long- term current use of insulin E11.9 ; HTN (hypertension) I10 and Diabetic polyneuropathy associated with type 2 diabetes mellitus E11.42 [place] [address] 24578- 1189 December, Well woman exam (no gynecological exam) Z00.00 ; Hyperglycemia R73.9 and Type 2 diabetes mellitus without complication, without long-term current use of insulin E11.9 [place] [address] [place] [id number] [place] [address] 64916- 6642 Nov, Type 2 diabetes mellitus without complication, without long- term current use of insulin E11.9 [place] [address] 98142- 7194 Nov, Chest wall pain R07.89 ; Insomnia, unspecified type G47.00 and Allergic state, initial encounter T78.40XA [place] [address] 92346- 3836 Jul, Insomnia, unspecified type G47.00 and Rib pain on left side R07.81 [place] [address] [place] [id number] [place] [address] 16459- 6742 Jun, Insomnia, unspecified type G47.00 [facility] [address] [place] [id number] [place] [address] 87187 -7503 Apr, Fluid level behind tympanic membrane of both ears H65.93 [place] [address] 45166- 9668 Apr, [facility] [address] [place] [id number] [place] [address] 29485 -3594 Apr, Acute suppurative otitis media of left ear without spontaneous rupture of tympanic membrane, recurrence not specified H66.002 [place] [address] [place] [id number] [place] [address] 20559- 8170 Mar, Insomnia, unspecified type G47.00 ; Piriformis muscle pain M79.1 ; Costochondritis M94.0 and Rib pain on left side R07.81 [place] [address] [place] [id number] [place] [address] 11604- 9714 Feb, Rib pain on left side R07.81 [place] [address] [place] [id number] [place] [address] 53054- 8606 Jan, Costochondritis M94.0 [facility] [address] [place] [id number] [place] [address] 29711 -2634 Jan, Costochondritis M94.0 [place] [address] [place] [id number] [place] [address] 27399- 0163 December, Insomnia, unspecified type G47.00 and Piriformis muscle pain M79.1 [place] [address] [place] [id number] [place] [address] 48753- 3410 Jul, Insomnia, unspecified type G47.00 and Piriformis muscle pain M79.1 [place] [address] [place] [id number] [address]- [address] May, [facility] [address] [place] [address]- 6576 Feb, [place] [address] [place] [address] 88600- 4086 Jan, Wellness examination Z00.00 ; Insomnia, unspecified type G47.00 and Piriformis muscle pain M79.1 [place] [address] [place] [id number] [place] [address] 80217- 7266 Jun, [place] [address] [place] [id number] [address] Apr, Hypertension 401.9 ; Insomnia 780.52 ; Screening breast examination V76.10 and Hip pain 719.45 IMMUNIZATIONS No Known Immunizations SOCIAL HISTORY Never Assessed REASON FOR VISIT Lab (walk-in) PLAN OF CARE VITAL SIGNS MEDICATIONS Unknown Medications RESULTS No Results PROCEDURES Procedure Date Ordered Result Body Site LIPID PANEL Mar 10, 2018 COMPREHEN METABOLIC PANEL Mar 10, 2018 VENIPUNCT, ROUTINE* Mar 10, 2018 ASSAY THYROID STIM HORMONE Mar 10, 2018 INSTRUCTIONS MEDICATIONS ADMINISTERED No Known Medications [...]
--- OUTSIDE RECORDS SUMMARY | 2018-07-29 11:24 | XMS REPORT ---
Author Author SOFÍA LEWIS [facility] Address [address] [place] [address] Care Team Providers Care Physical Laboratory Assistant Name Role Phone SOFÍA LEWIS Unavailable PROBLEMS Type Condition ICD9-CM Code JDG42-QB Code Onset Dates Condition Status SNOMED Code Problem Chronic left hip pain M25.552 Active 02748594 Problem HTN (hypertension) I10 Active 74335440 Problem Mixed hyperlipidemia E78.2 Active 183249737 Problem Diabetic polyneuropathy associated with type 2 diabetes mellitus E11.42 Active 907032822 Problem Insomnia, unspecified type G47.00 Active 334030254 Problem Piriformis muscle pain M79.1 Active 57196214 Problem Type 2 diabetes mellitus without complication, without long-term current use of insulin E11.9 Active 716888869 Problem Chest wall pain R07.89 Active 546234017 ALLERGIES Substance Reaction Event Type Date Status Sulfamethoxazole Unknown Drug Allergy Jan, Active Lisinopril cough Drug Allergy Jan, Active ENCOUNTERS Encounter Location Date Diagnosis [place] [address] [place] [id number] [place] [address] 15385- 8025 Mar, [place] [address] [place] [id number] [place] [address] 87501- 0944 Mar, [place] [address] [place] [id number] [place] [address] 50959- 7298 Mar, [place] [address] 42947- 0730 Mar, Type 2 diabetes mellitus without complication, without long- term current use of insulin E11.9 ; HTN (hypertension) I10 ; Diabetic polyneuropathy associated with type 2 diabetes mellitus E11.42 ; Insomnia, unspecified type G47.00 ; High risk medication use Z79.899 and Mixed hyperlipidemia E78.2 [place] [address] [place] [id number] [place] [address] 17114- 6723 Mar, Type 2 diabetes mellitus without complication, without long- term current use of insulin E11.9 ; HTN (hypertension) I10 and Diabetic polyneuropathy associated with type 2 diabetes mellitus E11.42 [place] [address] [place] [id number] [place] [address] 81510- 1353 Feb, [place] [address] 29463- 6706 Jan, [place] [address] 68818- 4919 Jan, Type 2 diabetes mellitus without complication, without long- term current use of insulin E11.9 ; HTN (hypertension) I10 and Diabetic polyneuropathy associated with type 2 diabetes mellitus E11.42 [place] [address] [place] [id number] [place] [address] 41743- 7001 December, Well woman exam (no gynecological exam) Z00.00 ; Hyperglycemia R73.9 and Type 2 diabetes mellitus without complication, without long-term current use of insulin E11.9 [place] [address] [place] [id number] [place] [address] 51219- 5390 Nov, Type 2 diabetes mellitus without complication, without long- term current use of insulin E11.9 [place] [address] [place] [id number] [place] [address] 41815- 1571 Nov, Chest wall pain R07.89 ; Insomnia, unspecified type G47.00 and Allergic state, initial encounter T78.40XA [place] [address] [place] [id number] [place] [address] 51936- 3316 Jul, Insomnia, unspecified type G47.00 and Rib pain on left side R07.81 [place] [address] [place] [id number] [place] [address] 60864- 2432 Jun, Insomnia, unspecified type G47.00 [facility] [address] [place] [id number] [place] [address] 81866 -0876 Apr, Fluid level behind tympanic membrane of both ears H65.93 [facility] [address] [place] [id number] [place] [address] 28554- 3847 Apr, [facility] [address] [place] [id number] [place] [address] 03061 -6310 Apr, Acute suppurative otitis media of left ear without spontaneous rupture of tympanic membrane, recurrence not specified H66.002 [facility] [address] [place] [id number] [place] [address] 69620- 7117 Mar, Insomnia, unspecified type G47.00 ; Piriformis muscle pain M79.1 ; Costochondritis M94.0 and Rib pain on left side R07.81 [place] [address] [place] [id number] [place] [address] 45256- 0991 Feb, Rib pain on left side R07.81 [place] [address] 66699- 5608 Jan, Costochondritis M94.0 [facility] [address] [place] [id number] [place] [address] 84409 -8338 Jan, Costochondritis M94.0 [place] [address] [place] [id number] [place] [address] 21855- 8124 December, Insomnia, unspecified type G47.00 and Piriformis muscle pain M79.1 [place] [address] [place] [id number] [place] [address] 59412- 6922 Jul, Insomnia, unspecified type G47.00 and Piriformis muscle pain M79.1 [place] [address] [place] [id number] [place] [address] 58807- 5855 May, [place] [address] 04593- 8367 Feb, [place] [address] [place] [id number] [place] [address] 82229- 0605 Jan, Wellness examination Z00.00 ; Insomnia, unspecified type G47.00 and Piriformis muscle pain M79.1 [facility] [address] [facility] [id number] [place] [address]- 7932 Jun, [facility] [address] [facility] [id number] [place] [address]- 1786 Apr, Hypertension 401.9 ; Insomnia 780.52 ; Screening breast examination V76.10 and Hip pain 719.45 IMMUNIZATIONS No Known Immunizations SOCIAL HISTORY Never Assessed REASON FOR VISIT Diabetes-[facility] PLAN OF CARE Activity Details Follow Up 3 mos-03/26 or after, labs 2 days prior to appt Reason:DM VITAL SIGNS Height 63.0 in 2018-01-21 Weight 131.8 lbs 2018-01-21 Temperature 98.5 degrees Fahrenheit 2018-01-21 Heart Rate 80 bpm 2018-01-21 Respiratory Rate 18 2018-01-21 BMI 23.34 kg/m2 2018-01-21 Blood pressure systolic 142 mmHg 2018-01-21 Blood pressure diastolic 68 mmHg 2018-01-21 MEDICATIONS Medication Instructions Dosage Frequency Start Date End Date Duration Status Assure Comfort Lancets 28G 1 subcutaneously Once a day as directed 24h December, Active Lyrica 50 mg Orally Once a day in the evening 1 capsule Jan, 28 days Active Percocet 10-325 MG Orally 3 times a day 1 tablet 8h Nov, Active MetFORMIN HCl ER 500 mg Orally twice a day 20 min before meals 2 tablet December, 30 day(s) Active Ambien 10 mg Orally Once a day 1 tablet at bedtime as needed 24h Apr, Active Magnesium 200 mg Orally Once a day 1 tablet 24h Active iGlucose Test Strips 1 subcutaneously Once a day as directed 24h December, 30 days Active Aspirin Adult Low Dose 81 MG Orally Once a day 1 tablet 24h Active Glucometer 1 kit subcutaneously Once a day as directed 24h December, Jan, 30 days Active Losartan Potassium 25 MG Orally Once a day 1 tablet 24h Jan, 30 day(s) Active RESULTS Name Result Date Reference Range GLUCOSE FINGERSTICK (IN HOUSE) 2018-01-21 GLU FINGERSTICK 137 PC Lot # [id number] Exp date 06/19/18 PROCEDURES Procedure Date Ordered Result Body Site GLUCOSE BLOOD TEST January 21, 2018 INSTRUCTIONS MEDICATIONS ADMINISTERED No Known Medications [...]
--- OUTSIDE RECORDS SUMMARY | 2018-07-29 11:24 | XMS REPORT ---
Author Author SOFÍA LEWIS [facility] Address [address] [place] [address] Care Team Providers Care Silk Screen Frame Assembler Name Role Phone SOFÍA LEWIS Unavailable PROBLEMS Type Condition ICD9-CM Code NBQ03-EX Code Onset Dates Condition Status SNOMED Code Problem Chronic left hip pain M25.552 Active 31727268 Problem HTN (hypertension) I10 Active 41695976 Problem Mixed hyperlipidemia E78.2 Active 436800493 Problem Diabetic polyneuropathy associated with type 2 diabetes mellitus E11.42 Active 338943889 Problem Insomnia, unspecified type G47.00 Active 183141387 Problem Piriformis muscle pain M79.1 Active 37410890 Problem Type 2 diabetes mellitus without complication, without long-term current use of insulin E11.9 Active 597321961 Problem Chest wall pain R07.89 Active 188222816 ALLERGIES Substance Reaction Event Type Date Status Sulfamethoxazole Unknown Drug Allergy December, Active ENCOUNTERS Encounter Location Date Diagnosis [facility] [id number] [place] [address] 25188- 8963 Mar, [facility] [id number] [place] [address] 28082- 1339 Mar, [facility] [id number] [place] [address] 53566- 4700 Mar, Type 2 diabetes mellitus without complication, without long- term current use of insulin E11.9 ; HTN (hypertension) I10 ; Diabetic polyneuropathy associated with type 2 diabetes mellitus E11.42 ; Insomnia, unspecified type G47.00 ; High risk medication use Z79.899 and Mixed hyperlipidemia E78.2 [facility] [address] [place] [address] 68341- 1599 Mar, Type 2 diabetes mellitus without complication, without long- term current use of insulin E11.9 ; HTN (hypertension) I10 and Diabetic polyneuropathy associated with type 2 diabetes mellitus E11.42 [place] [id number] [place] [address] 01634- 0632 Feb, [place] [address] 6[address]60- 1149 Jan, [place] [address] 40045- 5417 Jan, Type 2 diabetes mellitus without complication, without long- term current use of insulin E11.9 ; HTN (hypertension) I10 and Diabetic polyneuropathy associated with type 2 diabetes mellitus E11.42 [place] [address] 26976- 1602 December, Well woman exam (no gynecological exam) Z00.00 ; Hyperglycemia R73.9 and Type 2 diabetes mellitus without complication, without long-term current use of insulin E11.9 [place] [id number] [place] [address] 38211- 1521 Nov, Type 2 diabetes mellitus without complication, without long- term current use of insulin E11.9 [place] [address] 67796- 3027 Nov, Chest wall pain R07.89 ; Insomnia, unspecified type G47.00 and Allergic state, initial encounter T78.40XA [place] [id number] [place] [address] 27121- 3996 Jul, Insomnia, unspecified type G47.00 and Rib pain on left side R07.81 [place] [id number] [place] [address] 65980- 2305 Jun, Insomnia, unspecified type G47.00 [facility] [id number] [place] [address] 18772 -2937 Apr, Fluid level behind tympanic membrane of both ears H65.93 [place] [address] 66432- 3494 Apr, [facility] [id number] [place] [address] 54930 -6347 Apr, Acute suppurative otitis media of left ear without spontaneous rupture of tympanic membrane, recurrence not specified H66.002 [facility] [id number] [place] [address] 67672- 0440 Mar, Insomnia, unspecified type G47.00 ; Piriformis muscle pain M79.1 ; Costochondritis M94.0 and Rib pain on left side R07.81 [facility] [id number] [place] [address] 29341- 4718 Feb, Rib pain on left side R07.81 [facility] [id number] [place] [address] 11078- 4067 Jan, Costochondritis M94.0 [facility] [id number] [place] [address] 98265 -2908 Jan, Costochondritis M94.0 [facility] [id number] [place] [address] 15014- 5694 December, Insomnia, unspecified type G47.00 and Piriformis muscle pain M79.1 [facility] [id number] [place] [address] 87066- 8985 Jul, Insomnia, unspecified type G47.00 and Piriformis muscle pain M79.1 [facility] [id number] [place] [address] 02519- 7066 May, [facility] [id number] [place] [address] 44771- 7843 Feb, [facility] [id number] [place] [address] 41356- 3108 Jan, Wellness examination Z00.00 ; Insomnia, unspecified type G47.00 and Piriformis muscle pain M79.1 [facility] [id number] [place] [address] 57240- 8670 Jun, [facility] [address] [facility] [id number] [address]- 4118 Apr, Hypertension 401.9 ; Insomnia 780.52 ; Screening breast examination V76.10 and Hip pain 719.45 IMMUNIZATIONS No Known Immunizations SOCIAL HISTORY Never Assessed REASON FOR VISIT Well woman- needs mammogram--[facility] PLAN OF CARE Activity Details Follow Up 4 Weeks Reason:DM VITAL SIGNS Height 63.0 in 2017-12-24 Weight 131.8 lbs 2017-12-24 Temperature 98.2 degrees Fahrenheit 2017-12-24 Heart Rate 76 bpm 2017-12-24 Respiratory Rate 20 2017-12-24 BMI 23.34 kg/m2 2017-12-24 Blood pressure systolic 144 mmHg 2017-12-24 Blood pressure diastolic 80 mmHg 2017-12-24 MEDICATIONS Medication Instructions Dosage Frequency Start Date End Date Duration Status Loratadine-D 12HR 5-120 MG Orally every 12 hrs 1 tablet as needed 12h Active Ambien 10 mg Orally Once a day 1 tablet at bedtime as needed 24h Apr, Active Aspirin Adult Low Dose 81 MG Orally Once a day 1 tablet 24h Active Assure Comfort Lancets 28G 1 subcutaneously Once a day as directed 24h December, 30 days Active Ibuprofen 600 MG Orally Three times a day 1 tablet with food or milk as needed 8h Nov, Active MetFORMIN HCl ER 500 mg Orally twice a day 20 min before meals 1 tablet December, 30 day(s) Active Magnesium 200 mg Orally Once a day 1 tablet 24h Active iGlucose Test Strips 1 subcutaneously Once a day as directed 24h December, 30 days Active Percocet 10-325 MG Orally 3 times a day 1 tablet 8h Nov, Active Metformin HCl 500 mg Orally twice a day 1 tablet with a meal 12h Nov, 30 day(s) Not-Taking Glucometer 1 kit subcutaneously Once a day as directed 24h December, Jan, 30 days Active RESULTS Name Result Date Reference Range A1C (IN HOUSE) 2017-12-24 A1C IN HOUSE 13.1 4.3 - 5.6 % Previous A1c Lot [id number] Exp date 10/2019 Mammogram, Bilateral Screening 2018-02-03 A1C (IN HOUSE) 2017-12-24 A1C IN HOUSE 13.1 4.3 - 5.6 % Previous A1c Lot [id number] Exp date 10/2019 PROCEDURES Procedure Date Ordered Result Body Site GLYCATED HEMOGLOBIN TEST December 24, 2017 INSTRUCTIONS MEDICATIONS ADMINISTERED No Known Medications [...]
--- OUTSIDE RECORDS SUMMARY | 2018-07-29 11:24 | XMS REPORT ---
Author Author SOFÍA LEWIS [facility] Address [address] [place] [address] Care Team Providers Care Anodizing Line Operator Name Role Phone SOFÍA LEWIS Unavailable PROBLEMS Type Condition ICD9-CM Code JGN18-JE Code Onset Dates Condition Status SNOMED Code Problem Chronic left hip pain M25.552 Active 53473144 Problem HTN (hypertension) I10 Active 63352408 Problem Mixed hyperlipidemia E78.2 Active 143329342 Problem Diabetic polyneuropathy associated with type 2 diabetes mellitus E11.42 Active 169446730 Problem Insomnia, unspecified type G47.00 Active 097863399 Problem Piriformis muscle pain M79.1 Active 61899659 Problem Type 2 diabetes mellitus without complication, without long-term current use of insulin E11.9 Active 504253583 Problem Chest wall pain R07.89 Active 738245238 ALLERGIES No Information ENCOUNTERS Encounter Location Date Diagnosis [facility] [address] 70081- 3820 Mar, [place] [id number] [place] [address] 32876- 9199 Mar, [facility] [id number] [place] [address] 21903- 4173 Mar, [facility] [id number] [place] [address] 39499- 7911 Mar, Type 2 diabetes mellitus without complication, without long- term current use of insulin E11.9 ; HTN (hypertension) I10 ; Diabetic polyneuropathy associated with type 2 diabetes mellitus E11.42 ; Insomnia, unspecified type G47.00 ; High risk medication use Z79.899 and Mixed hyperlipidemia E78.2 [facility] [address] 61039- 9262 Mar, Type 2 diabetes mellitus without complication, without long- term current use of insulin E11.9 ; HTN (hypertension) I10 and Diabetic polyneuropathy associated with type 2 diabetes mellitus E11.42 [place] [id number] [place] [address] 30748- 4604 Feb, [place] [id number] [place] [address] 86837- 9869 Jan, [place] [address] 24534- 5422 Jan, Type 2 diabetes mellitus without complication, without long- term current use of insulin E11.9 ; HTN (hypertension) I10 and Diabetic polyneuropathy associated with type 2 diabetes mellitus E11.42 [place] [id number] [place] [address] 56284- 4340 December, Well woman exam (no gynecological exam) Z00.00 ; Hyperglycemia R73.9 and Type 2 diabetes mellitus without complication, without long-term current use of insulin E11.9 [place] [id number] [place] [address] 80076- 5514 Nov, Type 2 diabetes mellitus without complication, without long- term current use of insulin E11.9 [place] [id number] [place] [address] 04422- 3668 Nov, Chest wall pain R07.89 ; Insomnia, unspecified type G47.00 and Allergic state, initial encounter T78.40XA [place] [id number] [place] [address] 92520- 5629 Jul, Insomnia, unspecified type G47.00 and Rib pain on left side R07.81 [place] [address] 35814- 1300 Jun, Insomnia, unspecified type G47.00 [facility] [id number] [place] [address] 07376 -3868 Apr, Fluid level behind tympanic membrane of both ears H65.93 [place] [id number] [place] [address] 44578- 4250 Apr, [facility] [id number] [place] [address] 87891 -8966 Apr, Acute suppurative otitis media of left ear without spontaneous rupture of tympanic membrane, recurrence not specified H66.002 [facility] [address] 63496- 6478 Mar, Insomnia, unspecified type G47.00 ; Piriformis muscle pain M79.1 ; Costochondritis M94.0 and Rib pain on left side R07.81 [place] [address] 24872- 1217 Feb, Rib pain on left side R07.81 [facility] [id number] [place] [address] 21364- 4730 Jan, Costochondritis M94.0 [facility] [id number] [place] [address] 53404 -7326 Jan, Costochondritis M94.0 [facility] [address] 60736- 9017 December, Insomnia, unspecified type G47.00 and Piriformis muscle pain M79.1 [place] [id number] [place] [address] 24795- 0394 Jul, Insomnia, unspecified type G47.00 and Piriformis muscle pain M79.1 [facility] [id number] [place] [address] 27599- 6347 May, [place] [address] 70961- 4386 Feb, [facility] [id number] [place] [address] 79755- 3144 Jan, Wellness examination Z00.00 ; Insomnia, unspecified type G47.00 and Piriformis muscle pain M79.1 [place] [address] [place] [id number] [place] [address]- 6403 Jun, [facility] [address] [facility] [id number] [place] [address]- 6[address] Apr, Hypertension 401.9 ; Insomnia 780.52 ; Screening breast examination V76.10 and Hip pain 719.45 IMMUNIZATIONS No Known Immunizations SOCIAL HISTORY Never Assessed REASON FOR VISIT Medication question PLAN OF CARE VITAL SIGNS MEDICATIONS Unknown [...]
--- OUTSIDE RECORDS SUMMARY | 2018-07-29 11:25 | XMS REPORT ---
Author Author CACHORRO Mina Organization [facility] Address [address] [place] [address] Care Team Providers Care Estate Planning Attorney Name Role Phone Keeley CACHORRO Unavailable PROBLEMS Type Condition ICD9-CM Code EDK67-AS Code Onset Dates Condition Status SNOMED Code Problem Type 2 diabetes mellitus without complication, without long-term current use of insulin E11.9 Active 143007438 Problem Chest wall pain R07.89 Active 750733675 Problem Chronic left hip pain M25.552 Active 39988424 Problem HTN (hypertension) I10 Active 46005451 Problem Insomnia, unspecified type G47.00 Active 822371316 Problem Piriformis muscle pain M79.1 Active 94387544 ALLERGIES No Information ENCOUNTERS Encounter Location Date Diagnosis [facility] [id number] [place] [address] 63357- 4246 Nov, Type 2 diabetes mellitus without complication, without long- term current use of insulin E11.9 [facility] [id number] [place] [address] 81589- 2009 17 Nov, 2017 Chest wall pain R07.89 ; Insomnia, unspecified type G47.00 and Allergic state, initial encounter T78.40XA [facility] [id number] [place] [address] 81312- 9180 Jul, Insomnia, unspecified type G47.00 and Rib pain on left side R07.81 [place] [address] 54987- 8428 Jun, Insomnia, unspecified type G47.00 [facility] [id number] [place] [address] 19651 -6510 Apr, Fluid level behind tympanic membrane of both ears H65.93 [facility] [id number] [place] [address] 89065- 3577 Apr, [facility] [id number] [place] [address] 21816 -8536 Apr, Acute suppurative otitis media of left ear without spontaneous rupture of tympanic membrane, recurrence not specified H66.002 [place] [address] 76576- 0206 Mar, Insomnia, unspecified type G47.00 ; Piriformis muscle pain M79.1 ; Costochondritis M94.0 and Rib pain on left side R07.81 [place] [address] 04299- 3949 Feb, Rib pain on left side R07.81 [place] [id number] [place] [address] 97165- 6339 Jan, Costochondritis M94.0 [facility] [id number] [place] [address] 87260 -7329 Jan, Costochondritis M94.0 [place] [address] 40855- 2366 December, Insomnia, unspecified type G47.00 and Piriformis muscle pain M79.1 [place] [id number] [place] [address] 28880- 7836 Jul, Insomnia, unspecified type G47.00 and Piriformis muscle pain M79.1 [place] [id number] [place] [address] 32910- 4673 May, [place] [address] 44833- 8634 Feb, [place] [id number] [place] [address] 50835- 8731 Jan, Wellness examination Z00.00 ; Insomnia, unspecified type G47.00 and Piriformis muscle pain M79.1 [place] [address] [facility] [id number] [place] [address]- 1556 Jun, [facility] [address] [facility] [id number] [place] [address]- 9306 Apr, Hypertension 401.9 ; Insomnia 780.52 ; Screening breast examination V76.10 and Hip pain 719.45 IMMUNIZATIONS No Known Immunizations SOCIAL HISTORY Never Assessed REASON FOR VISIT No answer PLAN OF CARE VITAL SIGNS MEDICATIONS Unknown Medications RESULTS No Results PROCEDURES No Known procedures INSTRUCTIONS MEDICATIONS ADMINISTERED No Known Medications MEDICAL (GENERAL) HISTORY Type Description Date Medical History kidney stones Medical History insomnia Medical History chronic pain to right posterior hip from torn ligamnet Medical History rib injury Surgical History kidney stone basket approx 2003 Surgical History left shoulder tendon release 2007
--- OUTSIDE RECORDS SUMMARY | 2018-07-29 11:25 | XMS REPORT ---
Author CACHORRO Can [facility] eClinical[employer] Address Unknown Phone Unavailable Care Team Providers Care Spout Worker Name Role Phone CACHORRO MA Unavailable Allergies No Known Allergies Problems Problem Type Condition Code Onset Dates Condition Status Problem Piriformis muscle pain M79.1 Active Problem HTN (hypertension) I10 Active Problem Insomnia, unspecified type G47.00 Active Problem Chronic left hip pain M25.552 Active Medications Medication Code System Code Instructions Start Date End Date Status Dosage Erythromycin Base [facility] [address]-43 500 MG Orally 2 times a day May 23, 2016 as directed Results No Known Results Summary Purpose eClinicalWorks Submission
--- OUTSIDE RECORDS SUMMARY | 2018-07-29 11:25 | XMS REPORT ---
Author Author PHILIP FARLEY Organization [facility] Address [address] [place] [address] Care Team Providers Care Assembly Machine Tool Setter Name Role Phone PHILIP FARLEY Unavailable PROBLEMS Type Condition ICD9-CM Code NRA91-XN Code Onset Dates Condition Status SNOMED Code Problem Type 2 diabetes mellitus without complication, without long-term current use of insulin E11.9 Active 542155408 Problem Chest wall pain R07.89 Active 420122359 Problem Chronic left hip pain M25.552 Active 65107652 Problem HTN (hypertension) I10 Active 25035773 Problem Insomnia, unspecified type G47.00 Active 678127296 Problem Piriformis muscle pain M79.1 Active 42666278 ALLERGIES No Information ENCOUNTERS Encounter Location Date Diagnosis [place] [id number] [place] [address] 51101- 8235 Jan, [place] [address] 08381- 2848 December, Well woman exam (no gynecological exam) Z00.00 ; Hyperglycemia R73.9 and Type 2 diabetes mellitus without complication, without long-term current use of insulin E11.9 [place] [id number] [place] [address] 27271- 0377 Nov, Type 2 diabetes mellitus without complication, without long- term current use of insulin E11.9 [place] [id number] [place] [address] 67067- 7088 Nov, Chest wall pain R07.89 ; Insomnia, unspecified type G47.00 and Allergic state, initial encounter T78.40XA [place] [id number] [place] [address] 65179- 0273 Jul, Insomnia, unspecified type G47.00 and Rib pain on left side R07.81 [place] [address] [id number] [place] [address] 89296- 0507 Jun, Insomnia, unspecified type G47.00 [facility] [id number] [place] [address] 99860 -6734 22 Apr, 2017 Fluid level behind tympanic membrane of both ears H65.93 [place] [id number] [place] [address] 47174- 4933 Apr, [facility] [id number] [place] [address] 20802 -2161 Apr, Acute suppurative otitis media of left ear without spontaneous rupture of tympanic membrane, recurrence not specified H66.002 [place] [id number] [place] [address] 11763- 1327 Mar, Insomnia, unspecified type G47.00 ; Piriformis muscle pain M79.1 ; Costochondritis M94.0 and Rib pain on left side R07.81 [place] [id number] [place] [address] 23756- 3707 Feb, Rib pain on left side R07.81 [place] [address] [id number] [place] [address] 71868- 0700 Jan, Costochondritis M94.0 [facility] [place] [id number] [place] [address] 36467 -7332 Jan, Costochondritis M94.0 [place] [address] [id number] [place] [address] 63558- 7155 December, Insomnia, unspecified type G47.00 and Piriformis muscle pain M79.1 [place] [id number] [place] [address] 29807- 0958 Jul, Insomnia, unspecified type G47.00 and Piriformis muscle pain M79.1 [place] [id number] [place] [address] 67881- 4925 May, [facility] [address] [place] [address] [id number] [address]- 8748 Feb, [place] [address] [place] [address] [id number]- 2370 Jan, Wellness examination Z00.00 ; Insomnia, unspecified type G47.00 and Piriformis muscle pain M79.[address] [place] [address] 37114- 1236 Jun, [place] [address] [place] [address] 10763- 8016 Apr, Hypertension 401.9 ; Insomnia 780.52 ; Screening breast examination V76.10 and Hip pain 719.45 IMMUNIZATIONS No Known Immunizations SOCIAL HISTORY Never Assessed REASON FOR VISIT Repository Medication PLAN OF CARE VITAL SIGNS MEDICATIONS Medication Instructions Dosage Frequency Start Date End Date Duration Status Ambien 10 mg Orally Once a day 1 tablet at bedtime as needed 24h Apr, Active RESULTS No Results PROCEDURES No Known procedures INSTRUCTIONS MEDICATIONS ADMINISTERED No Known Medications MEDICAL (GENERAL) HISTORY Type Description Date Medical History kidney stones Medical History insomnia Medical History chronic pain to right posterior hip from torn ligamnet Medical History rib injury Surgical History kidney stone basket approx 2003 Surgical History left shoulder tendon release 2007
--- OUTSIDE RECORDS SUMMARY | 2018-07-29 11:25 | XMS REPORT ---
Author Author CACHORRO MA Organization [facility] Address [address] [place] [address] Care Team Providers Care Telephone Order Dispatcher Name Role Phone CACHORRO MA Unavailable PROBLEMS Type Condition ICD9-CM Code WJM17-IV Code Onset Dates Condition Status SNOMED Code Problem Insomnia, unspecified type G47.00 Active 824351530 Problem Piriformis muscle pain M79.1 Active 44969454 Problem HTN (hypertension) I10 Active 19735847 Problem Chronic left hip pain M25.552 Active 16668384 ALLERGIES Unknown Allergies SOCIAL HISTORY No smoking Hx information available PLAN OF CARE VITAL SIGNS MEDICATIONS Medication Instructions Dosage Frequency Start Date End Date Duration Status Ambien 10 mg Orally Once a day 1 tablet at bedtime as needed 24h Apr, 30 days Active Percocet 10-325 MG Orally 2 times a day 1 tablet 12h Active RESULTS No Results PROCEDURES No Known procedures IMMUNIZATIONS No Known Immunizations
--- OUTSIDE RECORDS SUMMARY | 2018-07-29 11:25 | XMS REPORT ---
Author Author CACHORRO Mina Organization [facility] Address [address] [place] [address] Care Team Providers Care Radio Electrician Name Role Phone Keeley CACHORRO Unavailable PROBLEMS Type Condition ICD9-CM Code [id number] Code Onset Dates Condition Status SNOMED Code Problem Type 2 diabetes mellitus without complication, without long-term current use of insulin E11.9 Active 105993584 Problem Chest wall pain R07.89 Active 203705130 Problem Chronic left hip pain M25.552 Active 44288567 Problem HTN (hypertension) I10 Active 19059620 Problem Insomnia, unspecified type G47.00 Active 160325196 Problem Piriformis muscle pain M79.1 Active 96109023 ALLERGIES No Information ENCOUNTERS Encounter Location Date Diagnosis [place] [address] [address] Jan, [place] [address] [address] December, Well woman exam (no gynecological exam) Z00.00 ; Hyperglycemia R73.9 and Type 2 diabetes mellitus without complication, without long-term current use of insulin E11.9 [place] [address] [place] [id number] [place] [address]61[address] 4914 Nov, Type 2 diabetes mellitus without complication, without long- term current use of insulin E11.9 [place] [address] [address] Nov, Chest wall pain R07.89 ; Insomnia, unspecified type G47.00 and Allergic state, initial encounter T78.40XA [place] [address] [address] Jul, Insomnia, unspecified type G47.00 and Rib pain on left side R07.81 [place] [address] [place] [id number] [place] [address] 56629- 3847 Jun, Insomnia, unspecified type G47.00 [facility] [address] [place] [id number] [place] [address]2490 -5225 22 Apr, 2017 Fluid level behind tympanic membrane of both ears H65.93 [place] [address] [address] Apr, [facility]ALK IN [facility] [address] [place] [id number] [place] [address] Apr, Acute suppurative otitis media of left ear without spontaneous rupture of tympanic membrane, recurrence not specified H66.002 [place] [address] [place] [id number] [place] [address] 32187- 8061 Mar, Insomnia, unspecified type G47.00 ; Piriformis muscle pain M79.1 ; Costochondritis M94.0 and Rib pain on left side R07.81 [place] [address] [place] [id number] [place] [address] 27515- 1203 Feb, Rib pain on left side R07.81 [place] [address] [place] [id number] [place] [address] 02448- 8137 Jan, Costochondritis M94.0 [facility] [address] [place] [id number] [place] [address]199 [address]5184 Jan, Costochondritis M94.0 [place] [address] [place] [id number] [place] [address] 83203- 5583 December, Insomnia, unspecified type G47.00 and Piriformis muscle pain M79.1 [place] [address] [place] [id number] [place] [address] 95830- 2180 Jul, Insomnia, unspecified type G47.00 and Piriformis muscle pain M79.1 [place] [address] [place] [id number] [place] [address] 35471- 0466 May, [facility] [address] [facility] [id number] [address] Feb, [facility] [address] [address] Jan, Wellness examination Z00.00 ; Insomnia, unspecified type G47.00 and Piriformis muscle pain M79.1 [place] [address] [address] Jun, [facility] [address] [facility] [id number], [place] [address] Apr, Hypertension 401.9 ; Insomnia 780.52 ; Screening breast examination V76.10 and Hip pain 719.45 IMMUNIZATIONS No Known Immunizations SOCIAL HISTORY Never Assessed REASON FOR VISIT PLAN OF CARE VITAL SIGNS MEDICATIONS Medication Instructions Dosage Frequency Start Date End Date Duration Status Ambien 10 mg Orally Once a day 1 tablet at bedtime as needed 24h Apr, Active Percocet 10-325 MG Orally 3 times a day 1 tablet 8h Jul, Active RESULTS No Results PROCEDURES No Known procedures INSTRUCTIONS MEDICATIONS ADMINISTERED No Known Medications MEDICAL (GENERAL) HISTORY Type Description Date Medical History kidney stones Medical History insomnia Medical History chronic pain to right posterior hip from torn ligamnet Medical History rib injury Surgical History kidney stone basket approx 2003 Surgical History left shoulder tendon release 2007
--- OUTSIDE RECORDS SUMMARY | 2018-07-29 11:25 | XMS REPORT ---
Author Author CACHORRO MA Organization [employer] Address Unknown Phone Unavailable Care Team Providers Care Hyperbaric Welder Diver Name Role Phone CACHORRO MA CP Unavailable Allergies, Adverse Reactions, Alerts Substance Reaction Event Type Sulfamethoxazole Info Not Available Drug Allergy Problems Problem Type Condition Code Onset Dates Condition Status Problem Chronic left hip pain M25.552 Active Assessment Hypertension 401.9 Active Problem HTN (hypertension) I10 Active Assessment Hip pain 719.45 Active Assessment Insomnia 780.52 Active Assessment Screening breast examination V76.10 Active Medications Medication Code System Code Instructions Start Date End Date Status Dosage Percocet [facility] [address]-61 10-325 MG Orally every 6 hrs May 03, 2015 Jun 02, 2015 1 tablet as needed Ambien [facility] [address]-00 10 MG Orally Once a day 1 tablet at bedtime as needed Toprol XL [facility] [address]-75 25 MG Orally Once a day May 03, 2015 1 tablet Ambien [facility] [address]-79 10 MG Orally Once a day May 03, 2015 1 tablet at bedtime as needed Percocet [facility] [address]-26 10-325 MG Orally PRN only 1 tablet Procedures Procedure Coding System Code Date Office Visit, New Pt., Level 4 CPT-4 87355 May 03, 2015 Vital Signs Date/Time: May 03, 2015 Temperature 96.3 F Weight 156.7 lbs Height 63.0 in BMI 27.76 Index Blood Pressure Diastolic 92 mmHg Blood Pressure Systolic 150 mmHg Cardiac Monitoring Heart Rate 80 bpm Results No Known Results Summary Purpose [employer] Submission
--- OUTSIDE RECORDS SUMMARY | 2018-07-29 11:25 | XMS REPORT ---
Author Author CACHORRO MA Organization [facility] Address [address] [place] [address] Care Team Providers Care Facial Operator Name Role Phone CACHORRO MA Unavailable PROBLEMS Type Condition ICD9-CM Code [id number] Code Onset Dates Condition Status SNOMED Code Problem Insomnia, unspecified type G47.00 Active 799106244 Problem Piriformis muscle pain M79.1 Active 82731653 Problem Chronic left hip pain M25.552 Active 62117881 Problem HTN (hypertension) I10 Active 85024783 ALLERGIES No Information SOCIAL HISTORY Never Assessed PLAN OF CARE VITAL SIGNS MEDICATIONS Medication Instructions Dosage Frequency Start Date End Date Duration Status Ambien 10 mg Orally Once a day 1 tablet at bedtime as needed 24h 29 Apr, 2015 30 days Active Percocet 10-325 MG Orally 2 times a day 1 tablet 12h 25 Dec, 2016 Active RESULTS No Results PROCEDURES No Known procedures IMMUNIZATIONS No Known Immunizations MEDICAL (GENERAL) HISTORY Type Description Date Medical History kidney stones Medical History insomnia Medical History chronic pain to right posterior hip from torn ligamnet Medical History rib injury Surgical History kidney stone basket approx 2003 Surgical History left shoulder tendon release 2007
--- OUTSIDE RECORDS SUMMARY | 2018-07-29 11:25 | XMS REPORT ---
Author Author CACHORRO Mina Organization [facility] Address [address] [place] [address] Care Team Providers Care Materials Mgmt Tech Name Role Phone Keeley CACHORRO Unavailable PROBLEMS Type Condition ICD9-CM Code [id number] Code Onset Dates Condition Status SNOMED Code Problem Insomnia, unspecified type G47.00 Active 268343334 Problem Piriformis muscle pain M79.1 Active 79154637 Problem Chronic left hip pain M25.552 Active 47777814 Problem HTN (hypertension) I10 Active 50562904 ALLERGIES No Information ENCOUNTERS Encounter Location Date Diagnosis [place] [id number] [address] Nov, [place] [address] [place] [id number] [place] [address] 38971- [address]276 Jul, Insomnia, unspecified type G47.00 and Rib pain on left side R07.81 [place] [address] [place] [id number] [place] [address] 28626- 5162 Jun, Insomnia, unspecified type G47.00 [facility] [address] [place] [id number] [place] [address]29 -7255 Apr, Fluid level behind tympanic membrane of both ears H65.93 [place] [address] [place] [id number] [place] [address] 94281- 8709 Apr, [facility] [address] [place] [id number] [place] [address] -0196 Apr, Acute suppurative otitis media of left ear without spontaneous rupture of tympanic membrane, recurrence not specified H66.002 [place] [address] [place] [id number] [place] [address] 06446- 3691 Mar, Insomnia, unspecified type G47.00 ; Piriformis muscle pain M79.1 ; Costochondritis M94.0 and Rib pain on left side R07.81 [facility] [address] [place] [id number] [place] [address] 16144- 7862 Feb, Rib pain on left side R07.81 [facility] [address] [place] [id number] [place] [address] 65139- 9192 Jan, Costochondritis M94.0 [facility] [address] [place] [id number] [place] [address]75 -2747 Jan, Costochondritis M94.0 [facility] [address] [place] [id number] [place] [address] 04884- 2360 December, Insomnia, unspecified type G47.00 and Piriformis muscle pain M79.1 [place] [address] [address]- [address] Jul, Insomnia, unspecified type G47.00 and Piriformis muscle pain M79.1 [place] [address] [place] [id number] [place] [address] 30802- 8551 May, [place] [address] [place] [id number] [place] [address] 57940- 5117 Feb, [facility] [address] [place] [id number] [place] [address] 80842- 0634 Jan, Wellness examination Z00.00 ; Insomnia, unspecified type G47.00 and Piriformis muscle pain M79.1 [facility] [address] [place] [id number] [place] [address] 67690- 9116 Jun, [facility] [address] [address]- [address] Apr, Hypertension 401.9 ; Insomnia 780.52 ; Screening breast examination V76.10 and Hip pain 719.45 IMMUNIZATIONS No Known Immunizations SOCIAL HISTORY Never Assessed REASON FOR VISIT [facility] PLAN OF CARE VITAL SIGNS MEDICATIONS Unknown Medications RESULTS Name Result Date Reference Range Xray : Rib Series, Left (IN HOUSE) 2017-01-31 PROCEDURES Procedure Date Ordered Result Body Site X-RAY EXAM OF RIBS January 31, 2017 INSTRUCTIONS MEDICATIONS ADMINISTERED No Known Medications MEDICAL (GENERAL) HISTORY Type Description Date Medical History kidney stones Medical History insomnia Medical History chronic pain to right posterior hip from torn ligamnet Medical History rib injury Surgical History kidney stone basket approx 2003 Surgical History left shoulder tendon release 2007
--- OUTSIDE RECORDS SUMMARY | 2018-07-29 11:25 | XMS REPORT ---
Author Author PARI VINSON [facility] Address [address] [place] [address] Care Team Providers Care Child Care Leader Name Role Phone PARI VINSON Unavailable PROBLEMS Type Condition ICD9-CM Code [id number] Code Onset Dates Condition Status SNOMED Code Problem Type 2 diabetes mellitus without complication, without long-term current use of insulin E11.9 Active 348820393 Problem Chest wall pain R07.89 Active 663607919 Problem Chronic left hip pain M25.552 Active 37877154 Problem HTN (hypertension) I10 Active 78595551 Problem Insomnia, unspecified type G47.00 Active 025791535 Problem Piriformis muscle pain M79.1 Active 38624294 ALLERGIES Substance Reaction Event Type Date Status Sulfamethoxazole Unknown Drug Allergy Apr, Active ENCOUNTERS Encounter Location Date Diagnosis [facility] [address] [place] [id number] [place] [address]23- [address]656 Nov, Type 2 diabetes mellitus without complication, without long- term current use of insulin E11.9 [facility] [address] [place] [id number] [place] [address] 63936- 1707 Nov, Chest wall pain R07.89 ; Insomnia, unspecified type G47.00 and Allergic state, initial encounter T78.40XA [facility] [address] [place] [id number] [place] [address] 81301- 5074 Jul, Insomnia, unspecified type G47.00 and Rib pain on left side R07.81 [place] [address] [place] [id number] [place] [address] 81877- 3037 Jun, Insomnia, unspecified type G47.00 [facility]ALK IN [facility] [address] [place] [id number] [place] [address] 59878 -1781 Apr, Fluid level behind tympanic membrane of both ears H65.93 [facility] [address] [place] [id number] [place] [address] 13356- 2779 Apr, [facility] [address] [place] [id number] [place] [address] 23428 -0583 Apr, Acute suppurative otitis media of left ear without spontaneous rupture of tympanic membrane, recurrence not specified H66.002 [facility] [address] [address] Mar, Insomnia, unspecified type G47.00 ; Piriformis muscle pain M79.1 ; Costochondritis M94.0 and Rib pain on left side R07.81 [facility] [address] [place] [address] [place] [address] 56414- 9116 Feb, Rib pain on left side R07.81 [place] [address] [place] [address] [place] [address] 38986- 8732 Jan, Costochondritis M94.0 [facility] [address] [place] [id number] [place] [address] 26095 -0093 Jan, Costochondritis M94.0 [facility] [address] [place] [id number] [place] [address] 66627- 6955 December, Insomnia, unspecified type G47.00 and Piriformis muscle pain M79.1 [place] [address] [place] [address] [place] [address] 14241- 9749 Jul, Insomnia, unspecified type G47.00 and Piriformis muscle pain M79.1 [facility] [address] [place] [id number] [place] [address] 28729- 7014 May, [facility] [address] 36[address]- 8046 Feb, [facility] [address] [place] [id number] [place] [address] 74135- 1448 Jan, Wellness examination Z00.00 ; Insomnia, unspecified type G47.00 and Piriformis muscle pain M79.1 [facility] [address] [facility] [id number] [place] [address] Jun, [facility] [address] [facility] [id number] [address] Apr, Hypertension 401.9 ; Insomnia 780.52 ; Screening breast examination V76.10 and Hip pain 719.45 IMMUNIZATIONS No Known Immunizations SOCIAL HISTORY Never Assessed REASON FOR VISIT was in here 2 weeks ago for left ear infection. just finished antibiotics 2 days ago...now right ear feels full and pressure. [email or web address] PLAN OF CARE Activity Details Follow Up prn Reason: VITAL SIGNS Height 63.0 in 2017-04-26 Weight 136.2 lbs 2017-04-26 Temperature 98.3 degrees Fahrenheit 2017-04-26 Heart Rate 98 bpm 2017-04-26 Respiratory Rate 20 2017-04-26 BMI 24.12 kg/m2 2017-04-26 Blood pressure systolic 136 mmHg 2017-04-26 Blood pressure diastolic 78 mmHg 2017-04-26 MEDICATIONS Medication Instructions Dosage Frequency Start Date End Date Duration Status Nick 24 Hour Active Percocet 10-325 MG Orally 3 times a day 1 tablet 8h Mar, Active Magnesium 200 mg Orally twice a day 2 tablets with a meal 12h Active Fexofenadine-Pseudoephed ER 60-120 MG Orally Twice a day 1 tablet as needed 12h Apr, May, 30 days Active Ambien 10 mg Orally Once a day 1 tablet at bedtime as needed 24h Apr, Active Flonase 50 MCG/ACT Nasally Once a day 1 spray in each nostril 24h Apr, 30 day(s) Active Aspirin Adult Low Dose 81 MG [...]
--- OUTSIDE RECORDS SUMMARY | 2018-07-29 11:26 | XMS REPORT ---
Author Author CAPRI DISLA Organization [facility] Address [address] [place] [address] Care Team Providers Care Roller Inspector And Mender Name Role Phone CAPRI DISLA Unavailable PROBLEMS Type Condition ICD9-CM Code ZQG78-PP Code Onset Dates Condition Status SNOMED Code Problem Insomnia, unspecified type G47.00 Active 145389502 Problem Piriformis muscle pain M79.1 Active 40319960 Problem Chronic left hip pain M25.552 Active 13833772 Problem HTN (hypertension) I10 Active 43964383 ALLERGIES Substance Reaction Event Type Date Status Sulfamethoxazole Unknown Drug Allergy Jan, Active ENCOUNTERS Encounter Location Date Diagnosis [place] [address] [place] [id number] [place] [address]16- 2326 Nov, [place] [address] [place] [id number] [place] [address] 87238- 6271 Jul, Insomnia, unspecified type G47.00 and Rib pain on left side R07.81 [place] [address] [place] [id number] [place] [address] 19513- 8720 Jun, Insomnia, unspecified type G47.00 [facility] [address] [place] [id number] [place] [address] 97836 -3092 Apr, Fluid level behind tympanic membrane of both ears H65.93 [facility] [address] [place] [id number] [place] [address] 72983- 2641 Apr, [facility] [address] [place] [id number] [place] [address] 46559 -0922 Apr, Acute suppurative otitis media of left ear without spontaneous rupture of tympanic membrane, recurrence not specified H66.002 [place] [address] [place] [id number] [place] [address] 10959- 4412 Mar, Insomnia, unspecified type G47.00 ; Piriformis muscle pain M79.1 ; Costochondritis M94.0 and Rib pain on left side R07.81 [facility] [address] [place] [id number] [place] [address] 33755- 9288 Feb, Rib pain on left side R07.81 [facility] [address] [place] [id number] [place] [address] 35928- 8520 Jan, Costochondritis M94.0 [facility] [address] [place] [id number] [place] [address] 54768 -8191 Jan, Costochondritis M94.0 [facility] [address] [place] [id number] [place] [address] 10933- 9336 December, Insomnia, unspecified type G47.00 and Piriformis muscle pain M79.1 [facility] [address] [place] [id number] [place] [address] 70639- 8191 Jul, Insomnia, unspecified type G47.00 and Piriformis muscle pain M79.1 [facility] [address] [place] [id number] [place] [address] 63748- 0227 May, [facility] [address] [place] [id number] [place] [address] 71294- 8454 Feb, [facility] [address] [place] [id number] [place] [address] 81077- 0814 Jan, Wellness examination Z00.00 ; Insomnia, unspecified type G47.00 and Piriformis muscle pain M79.1 [facility] [address] [place] [id number] [place] [address] 00765- 3773 Jun, [facility] [address] [place] [id number] [place] [address] 81778- 6233 Apr, Hypertension 401.9 ; Insomnia 780.52 ; Screening breast examination V76.10 and Hip pain 719.45 IMMUNIZATIONS No Known Immunizations SOCIAL HISTORY Never Assessed REASON FOR VISIT rib pain happened at chiropractor last Suzanne PLAN OF CARE VITAL SIGNS Height 63.0 in 2017-01-30 Weight 139.4 lbs 2017-01-30 Temperature 97.0 degrees Fahrenheit 2017-01-30 Heart Rate 82 bpm 2017-01-30 Respiratory Rate 22 2017-01-30 BMI 24.69 kg/m2 2017-01-30 Blood pressure systolic 164 mmHg 2017-01-30 Blood pressure diastolic 106 mmHg 2017-01-30 MEDICATIONS Medication Instructions Dosage Frequency Start Date End Date Duration Status Ambien 10 mg Orally Once a day 1 tablet at bedtime as needed 24h Apr, 30 days Active Cyclobenzaprine HCl 10 mg Orally 2 times a day 1 tablet as needed 12h Jan, Active [place] 5-325 MG Orally every 6 hrs 1 tablet as needed 6h Jan, Active PredniSONE 20 mg Orally Once a day 2 tablets 24h Jan, Feb, 05 days Active Percocet 10-325 MG Orally 2 times a day 1 tablet 12h December, Active RESULTS No Results PROCEDURES Procedure Date Ordered Result Body Site X-RAY EXAM OF RIBS January 30, 2017 INSTRUCTIONS MEDICATIONS ADMINISTERED No Known Medications MEDICAL (GENERAL) HISTORY Type Description Date Medical History kidney stones Medical History insomnia Medical History chronic pain to right posterior hip from torn ligamnet Medical History rib injury Surgical History kidney stone basket approx 2003 Surgical History left shoulder tendon release 2007
--- OUTSIDE RECORDS SUMMARY | 2018-07-29 11:26 | XMS REPORT ---
Author Author [facility] WALK IN [facility] Address [address] [place] [address] Care Team Providers Care Cloth Shader Name Role Phone PARI VINSON Unavailable PROBLEMS Type Condition ICD9-CM Code [id number] Code Onset Dates Condition Status SNOMED Code Problem Type 2 diabetes mellitus without complication, without long-term current use of insulin E11.9 Active 327932544 Problem Chest wall pain R07.89 Active 734961562 Problem Chronic left hip pain M25.552 Active 62796784 Problem HTN (hypertension) I10 Active 75083552 Problem Insomnia, unspecified type G47.00 Active 125109071 Problem Piriformis muscle pain M79.1 Active 08047872 ALLERGIES Substance Reaction Event Type Date Status Sulfamethoxazole Unknown Drug Allergy Apr, Active ENCOUNTERS Encounter Location Date Diagnosis [facility] [id number] [place] [address] Nov, Type 2 diabetes mellitus without complication, without long- term current use of insulin E11.9 [facility] [id number] [place] [address] 05190- 2667 17 Nov, 2017 Chest wall pain R07.89 ; Insomnia, unspecified type G47.00 and Allergic state, initial encounter T78.40XA [facility] [id number] [place] [address] 22582[address] 7704 Jul, Insomnia, unspecified type G47.00 and Rib pain on left side R07.81 [place] [id number] [place] [address] 16171[address] 7584 Jun, Insomnia, unspecified type G47.00 [facility] WALK IN [facility] [id number] [place] [address]46 [phone] Apr, Fluid level behind tympanic membrane of both ears H65.93 [facility] [id number] [place] [address] 12430[address] 2187 Apr, [facility] [id number] [place] [address] Apr, Acute suppurative otitis media of left ear without spontaneous rupture of tympanic membrane, recurrence not specified H66.002 [facility] [address] [address] Mar, Insomnia, unspecified type G47.00 ; Piriformis muscle pain M79.1 ; Costochondritis M94.0 and Rib pain on left side R07.81 [facility] [id number] [place] [address] 53743- 6084 Feb, Rib pain on left side R07.81 [place] [id number] [place] [address] 13704- 3464 Jan, Costochondritis M94.0 [facility]ARE [id number] [place] [phone] Jan, Costochondritis M94.0 [facility] [id number] [place] [address] 04671[address] 38[address] December, Insomnia, unspecified type G47.00 and Piriformis muscle pain M79.1 [place] [id number] [place] [address]18- 3576 Jul, Insomnia, unspecified type G47.00 and Piriformis muscle pain M79.1 [facility] [id number] [place] [address] 77804- 6174 May, [facility] [address] [address] Feb, [facility] [id number] [place] [address] 44679- 3941 Jan, Wellness examination Z00.00 ; Insomnia, unspecified type G47.00 and Piriformis muscle pain M79.1 [facility] [address] [facility] [id number] [place] [address] Jun, [facility] [address] [facility] [id number] [place] [address] Apr, Hypertension 401.9 ; Insomnia 780.52 ; Screening breast examination V76.10 and Hip pain 719.45 IMMUNIZATIONS No Known Immunizations SOCIAL HISTORY Never Assessed REASON FOR VISIT sore throat/ear pain started JStrasserRN PLAN OF CARE Activity Details Follow Up prn Reason: VITAL SIGNS Height 63.0 in 2017-04-15 Weight 139.2 lbs 2017-04-15 Temperature 98.3 degrees Fahrenheit 2017-04-15 Heart Rate 104 bpm 2017-04-15 Respiratory Rate 20 2017-04-15 BMI 24.66 kg/m2 2017-04-15 Blood pressure systolic 122 mmHg 2017-04-15 Blood pressure diastolic 80 mmHg 2017-04-15 MEDICATIONS Medication Instructions Dosage Frequency Start Date End Date Duration Status Aspirin Adult Low Dose 81 MG Orally Once a day 1 tablet 24h Active Amairani-D 24 Hour Active Amoxicillin 875 MG Orally every 12 hrs 1 tablet 12h 11 Apr, 2017 Apr, 10 day(s) Active Magnesium 200 mg Orally twice a day 2 tablets with a meal 12h Active Ambien 10 mg Orally Once a day 1 tablet at bedtime as needed 24h 29 Apr, 2015 Active Percocet 10-325 MG Orally 3 times a day 1 tablet 8h Mar, Active RESULTS No Results PROCEDURES No Known procedures INSTRUCTIONS MEDICATIONS ADMINISTERED No Known Medications MEDICAL (GENERAL) HISTORY Type Description Date Medical History kidney stones Medical History insomnia Medical History chronic pain to right posterior hip from torn ligamnet Medical History rib injury Surgical History kidney stone basket approx 2003 Surgical History left shoulder tendon release 2007
--- OUTSIDE RECORDS SUMMARY | 2018-07-29 11:26 | XMS REPORT ---
Author Author Keeley CACHORRO Organization [facility] Address [address] [place] [address] Care Team Providers Care Security Assistant Name Role Phone Keeley CACHORRO Unavailable PROBLEMS Type Condition ICD9-CM Code TBP67-RV Code Onset Dates Condition Status SNOMED Code Problem Type 2 diabetes mellitus without complication, without long-term current use of insulin E11.9 Active 657903368 Problem Chest wall pain R07.89 Active 327114568 Problem Chronic left hip pain M25.552 Active 88338712 Problem HTN (hypertension) I10 Active 74298443 Problem Insomnia, unspecified type G47.00 Active 758113744 Problem Piriformis muscle pain M79.1 Active 59974174 ALLERGIES Substance Reaction Event Type Date Status Sulfamethoxazole Unknown Drug Allergy Mar, Active ENCOUNTERS Encounter Location Date Diagnosis [place] [address] [address] Jan, [place] [address] [address] December, Well woman exam (no gynecological exam) Z00.00 ; Hyperglycemia R73.9 and Type 2 diabetes mellitus without complication, without long-term current use of insulin E11.9 [place] [id number] [place] [address] 92682- 5879 Nov, Type 2 diabetes mellitus without complication, without long- term current use of insulin E11.9 [place] [address] [address] Nov, Chest wall pain R07.89 ; Insomnia, unspecified type G47.00 and Allergic state, initial encounter T78.40XA [place] [address] [address] Jul, Insomnia, unspecified type G47.00 and Rib pain on left side R07.81 [place] [id number] [place] [address] 379084- 7518 Jun, Insomnia, unspecified type G47.00 [facility] [id number] [place] [address] 80777 [address]24 Apr, Fluid level behind tympanic membrane of both ears H65.93 [place] [address] [address]997 Apr, [facility] IN [facility] [address] [address] Apr, Acute suppurative otitis media of left ear without spontaneous rupture of tympanic membrane, recurrence not specified H66.002 [place] [address] [address] Mar, Insomnia, unspecified type G47.00 ; Piriformis muscle pain M79.1 ; Costochondritis M94.0 and Rib pain on left side R07.81 [place] [address] [address] Feb, Rib pain on left side R07.81 [place] [id number] [place] [address] 98[address] 9221 Jan, Costochondritis M94.0 [facility] [id number] [place] [address]96 -[address]27 Jan, Costochondritis M94.0 [place] [id number] [place] [address] 76861- 8778 December, Insomnia, unspecified type G47.00 and Piriformis muscle pain M79.1 [place] [id number] [place] [address] 19397- 7952 Jul, Insomnia, unspecified type G47.00 and Piriformis muscle pain M79.1 [place] [address], [place] [address] May, [place] [id number] [address] Feb, [place] [address] [place] [address] Jan, Wellness examination Z00.00 ; Insomnia, unspecified type G47.00 and Piriformis muscle pain M79.1 [place] [address] [place] [address] Jun, [place] [address] [place] [address] Apr, Hypertension 401.9 ; Insomnia 780.52 ; Screening breast examination V76.10 and Hip pain 719.45 IMMUNIZATIONS No Known Immunizations SOCIAL HISTORY Never Assessed REASON FOR VISIT Rib pain, getting better slowly. Zully PLAN OF CARE Activity Details Follow Up 3 Months Reason: VITAL SIGNS Height 63.0 in 2017-03-27 Weight 140 lbs 2017-03-27 Temperature 97.8 degrees Fahrenheit 2017-03-27 Heart Rate 84 bpm 2017-03-27 Respiratory Rate 20 2017-03-27 BMI 24.80 kg/m2 2017-03-27 Blood pressure systolic 140 mmHg 2017-03-27 Blood pressure diastolic 86 mmHg 2017-03-27 MEDICATIONS Medication Instructions Dosage Frequency Start Date End Date Duration Status Toprol XL 25 MG Orally Once a day 1 tablet 24h Apr, 30 day(s) Not-Taking [place] 5-325 MG Orally every 6 hrs 1 tablet as needed 6h Jan, Not-Taking Erythromycin Base 500 MG Orally 2 times a day as directed 12h May, Not-Taking Ambien 10 mg Orally Once a day 1 tablet at bedtime as needed 24h Apr, Active Aspirin Adult Low Dose 81 MG Orally Once a day 1 tablet 24h Active Magnesium 200 mg Orally twice a day 2 tablets with a meal 12h Active Cyclobenzaprine HCl 10 mg Orally 2 times a day 1 tablet as needed 12h Jan, Not-Taking Percocet 10-325 MG Orally 3 times a [...]
--- OUTSIDE RECORDS SUMMARY | 2018-07-29 11:26 | XMS REPORT ---
Author CACHORRO Can [facility] eClinicalWorks Address Unknown Phone Unavailable Care Team Providers Care Windows Consultant Name Role Phone CACHORRO [place] Unavailable Allergies No Known Allergies Problems Problem Type Condition Code Onset Dates Condition Status Problem Chronic left hip pain M25.552 Active Problem HTN (hypertension) I10 Active Medications No Known Medications Results No Known Results Summary Purpose eClinicalWorks Submission
--- OUTSIDE RECORDS SUMMARY | 2018-07-29 11:26 | XMS REPORT | Continuity of Care Document ---
Author Author [facility] Organization [facility] Address Unknown Phone Unavailable Allergies There is no data. Medications There is no data. Problems Date Dx Coded Attending Type Code Diagnosis Diagnosed By 06/18/2014 CACHORRO MA WEATHER ALGORITHM SCIENTIST Ot V76.12 06/06/2015 Ot V76.12 06/06/2015 Ot 793.82 06/06/2015 Ot V76.12 06/06/2015 CACHORRO MA WEATHER ALGORITHM SCIENTIST Ot V76.12 06/06/2015 CACHORRO MA WEATHER ALGORITHM SCIENTIST Ot 571.8 06/06/2015 CACHORRO MA WEATHER ALGORITHM SCIENTIST Ot 789.09 06/06/2015 CACHORRO MA WEATHER ALGORITHM SCIENTIST Ot V76.12 06/22/2015 CACHORRO MA WEATHER ALGORITHM SCIENTIST Ot Z12.31 02/03/2018 CACHORRO MA WEATHER ALGORITHM SCIENTIST Ot V76.12 OTH SCREEN MAMMO-MALIGN NEOPLASM OF [place] 02/03/2018 CACHORRO MA WEATHER ALGORITHM SCIENTIST Ot 571.8 CHRONIC LIVER DIS NEC 02/03/2018 CACHORRO MA WEATHER ALGORITHM SCIENTIST Ot 789.09 ABDOMINAL PAIN, OTHER SPECIFIED SITE 02/03/2018 CACHORRO MA WEATHER ALGORITHM SCIENTIST Ot V76.12 OTH SCREEN MAMMO-MALIGN NEOPLASM OF [place] 02/03/2018 CACHORRO MA WEATHER ALGORITHM SCIENTIST Ot Z12.31 ENCNTR SCREEN MAMMOGRAM FOR MALIGNANT NE 02/04/2018 SOFÍA LEWIS APRN Ot Z12.31 ENCNTR SCREEN MAMMOGRAM FOR MALIGNANT NE 02/19/2018 SOFÍA LEWIS AGRICULTURAL PRODUCE WASHER Ot Z12.31 ENCNTR SCREEN MAMMOGRAM FOR MALIGNANT NE 05/01/2018 CACHORRO MA WEATHER ALGORITHM SCIENTIST Ot V76.12 OTH SCREEN MAMMO-MALIGN NEOPLASM OF [place] 05/01/2018 CACHORRO MA WEATHER ALGORITHM SCIENTIST Ot 571.8 CHRONIC LIVER DIS NEC 05/01/2018 CACHORRO MA WEATHER ALGORITHM SCIENTIST Ot 789.09 ABDOMINAL PAIN, OTHER SPECIFIED SITE 05/01/2018 CACHORRO MA WEATHER ALGORITHM SCIENTIST Ot V76.12 OTH SCREEN MAMMO-MALIGN NEOPLASM OF [place] 05/01/2018 CACHORRO MA WEATHER ALGORITHM SCIENTIST Ot Z12.31 ENCNTR SCREEN MAMMOGRAM FOR MALIGNANT NE 05/01/2018 SOFÍA LEWIS APRN Ot Z12.31 ENCNTR SCREEN MAMMOGRAM FOR MALIGNANT NE 05/03/2018 SOFÍA LEWIS AGRICULTURAL PRODUCE WASHER Ot K76.89 OTHER SPECIFIED DISEASES OF LIVER 05/03/2018 SOFÍA LEWIS APRN Ot N20.0 CALCULUS OF KIDNEY 05/03/2018 SOFÍA LEWIS APRN Ot N39.0 URINARY TRACT INFECTION, SITE NOT SPECIF 05/13/2018 UTE HARRIS MD Ot N20.0 CALCULUS OF KIDNEY 05/14/2018 SOFÍA LEWIS APRN Ot K76.89 OTHER SPECIFIED DISEASES OF LIVER 05/14/2018 SOFÍA LEWIS APRN Ot N20.0 CALCULUS OF KIDNEY 05/14/2018 SOFÍA LEWIS APRN Ot N39.0 URINARY TRACT INFECTION, SITE NOT SPECIF 06/02/2018 UTE HARRIS MD Ot N20.0 CALCULUS OF KIDNEY Procedures There is no data. Results Test Result Range - 03/10/18 08:37 GLUCOSE 208 mg/dL 65-99 UREA NITROGEN (BUN) 8 mg/dL 7-25 CREATININE 0.44 mg/dL 0.50-1.05 eGFR NON-AFR. SOUTH AFR[place] 112 mL/min/1.73m2 > OR=60 eGFR 130 mL/min/1.73m2 > OR=60 BUN/CREATININE RATIO 18 (calc) 6-22 SODIUM 139 mmol/L 135-146 POTASSIUM 4.6 mmol/L 3.5-5.3 CHLORIDE 100 mmol/L 98-110 CARBON DIOXIDE 28 mmol/L 20-32 CALCIUM 10.8 mg/dL 8.6-10.4 PROTEIN, TOTAL 7.6 g/dL 6.1-8.1 ALBUMIN 5.1 g/dL 3.6-5.1 GLOBULIN 2.5 g/dL (calc) 1.9-3.7 ALBUMIN/GLOBULIN RATIO 2.0 (calc) 1.0-2.5 BILIRUBIN, TOTAL 0.9 mg/dL 0.2-1.2 ALKALINE PHOSPHATASE 90 U/L 33-130 AST 15 U/L 10-35 ALT 21 U/L 6-29 TSH - 03/10/18 08:37 TSH 1.36 mIU/L 0.40-4.50 PDM - PAIN MGMT (PROFILE 3 WITH CONFIRMATION) - 03/11/18 10:09 Prescribed Drug 1 Percocet(TM) NRG Creatinine 155.0 mg/dL > or=20.0 pH 5.35 4.5 - 9.0 Oxidant NEGATIVE mcg/mL <200 Amphetamines NEGATIVE ng/mL <500 medMATCH Amphetamines CONSISTENT NRG Benzodiazepines NEGATIVE ng/mL <100 medMATCH Benzodiazepines CONSISTENT NRG Marijuana Metabolite NEGATIVE ng/mL <20 medMATCH Marijuana Metab CONSISTENT NRG Cocaine Metabolite NEGATIVE ng/mL <150 medMATCH Cocaine Metab CONSISTENT NRG Opiates NEGATIVE CONFIRMED ng/mL <100 Oxycodone POSITIVE ng/mL <100 COMMENT NRG Codeine NEGATIVE ng/mL <50 medMATCH Codeine CONSISTENT NRG Hydrocodone NEGATIVE ng/mL <50 medMATCH Hydrocodone CONSISTENT NRG Hydromorphone NEGATIVE ng/mL <50 medMATCH Hydromorphone CONSISTENT NRG Morphine NEGATIVE ng/mL <50 medMATCH Morphine CONSISTENT NRG Norhydrocodone NEGATIVE ng/mL <50 medMATCH Norhydrocodone CONSISTENT NRG Noroxycodone 3102 ng/mL <50 medMATCH Noroxycodone CONSISTENT NRG Oxycodone 1992 ng/mL <50 medMATCH Oxycodone CONSISTENT NRG Oxymorphone 3242 ng/mL <50 medMATCH Oxymorphone CONSISTENT NRG CULTURE, URINE - 04/04/18 14:30 CULTURE, URINE, ROUTINE SEE NOTE NRG CULTURE, URINE - 04/15/18 10:46 CULTURE, URINE, ROUTINE SEE NOTE NRG CULTURE, URINE - 04/28/18 09:16 CULTURE, URINE, ROUTINE SEE NOTE NRG CD3+CD4+ (T4 helper) cells/100 cells in blood - 05/15/18 08:50 Timed urine calcium measurement (mass/volume) 288 % < 250 Urine oxalate detection 26 < 45 Urine uric acid measurement (mass/volume) 329 % < 700 Urine citrate measurement (mass/volume) 857 % > 320 Urine pH measurement 5.4 5.5-7.0 24 hour urine specimen volume measurement 2.42 % > 2.00 Sodium urate/total calculus mass ratio by infrared spectroscopy 391 % < 200 Sulfites [presence] in urine by test strip 5 < 30 Urine phosphate measurement (mass/volume) 482 % < 1100 Urine magnesium measurement (mass/volume) 93 % > 60 Urine calcium oxalate measurement 1.01 < 2.00 Urine calcium phosphate crystals detection by computer assisted method 0.18 < 2.00 24 hour urine sodium urate (saturation fraction) 0.99 < 2.00 Triple phosphate crystals detection in urine sediment by light microscopy 0.00 < 75.00 24 hour urine uric acid (saturation fraction) 1.43 < 2.00 Urine ammonium measurement 17 % 14-62 Urine potassium measurement 21 % 19-135 24 hour urine creatinine measurement (mass/time) 556 % 600-1800 Clinical multifocal button generator review of results See Below NRG Encounters ACCT No. Visit Date/Time Discharge Status Pt. Type Provider Facility Loc./Unit Complaint [id number] 05/12/2018 15:16:00 05/12/2018 23:59:59 CLS Outpatient UTE HARRIS MD [facility] LAB N20.0 [id number] 05/12/2018 13:15:00 05/12/2018 23:59:59 CLS Outpatient UTE HARRIS MD [facility] RAD RT RENAL STONE [id number] 05/02/2018 09:02:00 05/02/2018 23:59:59 CLS Outpatient SOFÍA LEWIS APRN [facility] RAD DYSURIA R30.0 [id number] 02/03/2018 14:28:00 02/03/2018 23:59:59 CLS Outpatient SOFÍA LEWIS APRN [facility] RAD SCREENING [id number] 06/06/2015 09:46:00 06/06/2015 23:59:59 CLS Outpatient CACHORRO MA [facility] RAD SCREENING [id number] 06/04/2014 13:04:00 06/04/2014 23:59:59 CLS Outpatient CACHORRO MA WEATHER ALGORITHM SCIENTIST [facility] RAD SCREENING [id number] 09/17/2013 11:25:00 09/17/2013 23:59:59 CLS Outpatient CACHORRO MA WEATHER ALGORITHM SCIENTIST [facility] RAD RT FLANK PAIN [id number] 06/03/2013 10:31:00 06/03/2013 23:59:59 CLS Outpatient CACHORRO MA WEATHER ALGORITHM SCIENTIST [facility] RAD SCREENING [id number] 05/14/2012 14:30:00 Document Registration [id number] 06/05/2010 10:10:00 Document Registration [id number] 07/02/2018 11:20:00 07/02/2018 23:59:59 CLS Outpatient [facility] [id number] 04/28/2018 09:00:00 Document Registration [id number] 04/15/2018 09:40:00 Document Registration [id number] 04/04/2018 11:40:00 Document Registration [id number] 03/11/2018 09:00:00 Document Registration [id number] 03/10/2018 08:20:00 Document Registration
--- NOTE | 2018-07-29 11:32 | ED EENT ---
History of Present Illness General Chief Complaint: Oral/Throat Problems Stated Complaint: THROAT SWELLING Source: patient Exam Limitations: no limitations History of Present Illness Date Seen by Provider: Jul 29, 2018 Time Seen by Provider: 11:30 Initial Comments To ER with reports of throat swelling. She states this began yesterday. She was seen by urgent care who suggested strep throat, started her on Augmentin. Last night she had to swallow the pill after crushing because she was unable to swallow the pill hole due to the pain associated with swallowing. She does have some hoarseness of her voice and a cough. No fevers. No history of this. Timing/Duration: abrupt Severity: moderate Location: throat Allergies and Home Medications Allergies Coded Allergies: Sulfa (Sulfonamide Antibiotics) (Verified Allergy, Unknown, 07/29/18) Patient Home Medication List Home Medication List Reviewed: Yes Review of Systems Review of Systems Constitutional: see HPI Eyes: No Symptoms Reported Ears: No Symptoms Reported Nose: no symptoms reported Mouth: no symptoms reported Throat: see HPI, hoarse Respiratory: no symptoms reported Cardiovascular: no symptoms reported Musculoskeletal: no symptoms reported Physical Exam Vital Signs Vital Signs - First Documented 07/29/18 11:23 Temp 99.4 Pulse 99 Resp 19 B/P (MAP) 159/91 (113) Pulse Ox 99 O2 Delivery Room Air Height, Weight, BMI Height: '" Weight: lbs. oz. kg; BMI Method: General Appearance: WD/WN, no apparent distress, other (no stridor) Eyes: bilateral eye normal inspection, bilateral eye PERRL, bilateral eye EOMI Ears: bilateral ear auricle normal, bilateral ear canal normal, bilateral ear TM normal Mouth/Throat: No tonsillar swelling, No trismus, No uvula swelling; other ( there is no visualized swelling of the oropharynx or uvula. Some erythema of the pharynx) Neck: non-tender, full range of motion; No lymphadenopathy (R), No lymphadenopathy (L) Respiratory: normal breath sounds, no respiratory distress, no accessory muscle use Gastrointestinal: normal bowel sounds, non tender Neurologic/Psychiatric: alert, normal mood/affect, oriented x 3 Skin: normal color, warm/dry Progress/Results/Core Measures Results/Orders Lab Results Laboratory Tests Test 07/29/18 12:20 Range/Units White Blood Count 11.8 H 4.3-11.0 10^3/uL Red Blood Count 5.10 4.35-5.85 10^6/uL Hemoglobin 15.7 11.5-16.0 G/DL Hematocrit 44 35-52 % Mean Corpuscular Volume 86 80-99 FL Mean Corpuscular Hemoglobin 31 25-34 PG Mean Corpuscular Hemoglobin Concent 36 32-36 G/DL Red Cell Distribution Width 12.2 10.0-14.5 % Platelet Count 245 130-400 10^3/uL Mean Platelet Volume 9.8 7.4-10.4 FL Neutrophils (%) (Auto) 74 42-75 % Lymphocytes (%) (Auto) 16 12-44 % Monocytes (%) (Auto) 10 0-12 % Eosinophils (%) (Auto) 0 0-10 % Basophils (%) (Auto) 0 0-10 % Neutrophils # (Auto) 8.7 H 1.8-7.8 X 10^3 Lymphocytes # (Auto) 1.9 1.0-4.0 X 10^3 Monocytes # (Auto) 1.2 H 0.0-1.0 X 10^3 Eosinophils # (Auto) 0.0 0.0-0.3 10^3/uL Basophils # (Auto) 0.0 0.0-0.1 10^3/uL Sodium Level 137 135-145 MMOL/L Potassium Level 4.2 3.6-5.0 MMOL/L Chloride Level 100 98-107 MMOL/L Carbon Dioxide Level 22 21-32 MMOL/L Anion Gap 15 H 5-14 MMOL/L Blood Urea Nitrogen 6 L 7-18 MG/DL Creatinine 0.69 0.60-1.30 MG/DL Estimat Glomerular Filtration Rate > 60 BUN/Creatinine Ratio 9 Glucose Level 224 H 70-105 MG/DL Calcium Level 10.7 H 8.5-10.1 MG/DL My Orders Orders - PARISH CARVAJAL APRN Ct Neck/Chest Wo (07/29/18 11:29) Cbc With Automated Diff (07/29/18 12:10) Basic Metabolic Panel (07/29/18 12:10) Iv Heplock-Insert (Order) (07/29/18 12:10) Ceftriaxone For Iv Use (Rocephin For I (07/29/18 12:15) Dexamethasone Injection (Decadron Inject (07/29/18 12:15) Ondansetron Injection (Zofran Injectio (07/29/18 12:45) Medications Given in ED Current Medications Medications Dose Ordered Sig/Jn Route Start Time Stop Time Status Last Admin Dose Admin Ceftriaxone Sodium 1000 mg/ Sodium Chloride 50 ml @ 100 mls/hr ONCE ONCE IV 07/29/18 12:15 07/29/18 12:44 DC 07/29/18 12:41 100 MLS/HR Dexamethasone Sodium Phosphate 10 mg ONCE ONCE IV 07/29/18 12:15 07/29/18 12:16 DC 07/29/18 12:41 10 MG Ondansetron HCl 4 mg ONCE ONCE IVP 07/29/18 12:45 07/29/18 12:46 DC 07/29/18 12:34 4 MG Vital Signs/I&O 07/29/18 11:23 Temp 99.4 Pulse 99 Resp 19 B/P (MAP) 159/91 (113) Pulse Ox 99 O2 Delivery Room Air Diagnostic Imaging Diagonstic Imaging: CT Comments NAME: GIOVANA HERNANDEZ [facility] REC#: [id number] PT STATUS: REG ER : 1960 PHYSICIAN: PARISH CARVAJAL APRN ADMIT DATE: 07/29/18/ER Draft Date of Exam:07/29/18 CT NECK/CHEST WO CLINICAL INDICATION: Patient was told by doctor that she had double ear infection and swelling in throat. Last night throat felt like it was swelling even more and today having trouble swallowing and feels like she is choking. EXAM: Axial CT scan of the neck and chest performed without IV contrast. Sagittal and coronal reformatted images are created. COMPARISON: None. FINDINGS Neck CT: There is mild thickening of the aryepiglottic folds which is symmetric, and may just be related to patient body habitus. There is also slight narrowing of the glottis region. Unknown if this is mechanically patient induced. Otherwise, the nasopharynx, oropharynx, hypopharynx, and laryngeal soft tissue structures are relatively symmetric otherwise unremarkable. The salivary glands and thyroid gland are unremarkable. There are multiple bilateral neck lymph nodes which are not significantly enlarged by size criteria. There is an 11 mm x 7 mm lymph node in the left region. The visualized portions of the oral cavity, tongue, sublingual space, and submandibular regions are unremarkable. There is no neck soft tissue fluid collection or fat stranding. Visualized portions of the orbits and intracranial structures are unremarkable. Paranasal sinuses are unremarkable. Mastoid air cells are clear. There is cervical spine degenerative disease including straightening of the cervical spine posture. There are cervical spine vertebral body spurs and facet arthropathy. There is at least moderate bilateral C5-C6 neural foramen narrowing due to uncinate spurs. Chest CT: There is mild dependent atelectasis involving the posterior aspects of both lungs. There is a parenchymal band in left lung base also suspected to represent atelectasis. There is no pleural effusion or pneumothorax. Pulmonary vasculature and bronchi show no significant abnormality. There is no mediastinal or hilar lymphadenopathy. There is small amount of fluid in the pericardial region seen. There is no axillary lymphadenopathy. The extrathoracic soft tissue shows no significant abnormality. There is a roughly 8 mm low-density area involving the right lobe of liver near the dome. This may represent a cyst. Remainder of the visualized upper abdominal structures shows no significant abnormality. There are hypertrophic spurs involving the thoracic spine. IMPRESSION: 1: There is mild thickening of the aryepiglottic folds which is symmetric and may be related to patient body habitus. 2: There is slight narrowing of the glottis region. Unknown if this is mechanically patient induced. There is no mass, fluid collection, or fat stranding seen. 3: There is no lymphadenopathy. 4: Otherwise, the remainder of the neck and chest CT scan shows no acute finding. Dictated on workstation # [id number] Dict: 07/29/18 1213 Trans: 07/29/18 1303 [facility] [id number] Interpreted by: SUE BHAGAT MD Electronically signed by: Departure Communication (Admissions) We will obtain a CT of the neck to evaluate for any swelling below what I'm able to directly visualize and rule out angioedema Impression Primary Impression: Acute laryngotracheobronchitis Disposition: HOME, SELF-CARE Condition: Stable Departure-Patient Inst. Decision time for Depature: 13:06 Referrals: NO,LOCAL PHYSICIAN (PCP) Primary Care Physician SOFÍA LEWIS APRN (Family) Primary Care Physician Patient Instructions: Laryngitis (DC) Add. Discharge Instructions: . Voice rest. Whisper when talking for the next 2-3 days. Stay hydrated by drinking plenty of warm fluids which may be soothing to the throat. Cough suppressant medication as directed. Continue the antibiotics and at the steroids to your medication regimen. Call your doctor tomorrow to make an appointment to be seen for follow-up. Return to ER for any worsening in the meantime. All discharge instructions reviewed with patient and/or family. Voiced understanding. Scripts Prednisone (Prednisone) 20 Mg Tab 40 MG PO DAILY, #6 TAB Prov: PARISH CARVAJAL APRN 07/29/18 Work/School Note: Work Release Form Date Seen in the Emergency Department: Jul 29, 2018 Return to Work: Aug 02, 2018 PARISH CARVJAAL APRN Jul 29, 2018 11:32
[2018-07-29] MEDS ORDERED: DEXAMETHASONE 10 MG/ML (DECADRON) 1 ML VIAL IV ONE (12:15)
[2018-07-29] MEDS ORDERED: cefTRIAXone FOR IV USE 1,000 MG in NS (IVPB) 50 ML IV ONE (12:15)
[2018-07-29 12:31] LABS: BASOPHILS % (AUTO) 0 % (0-10); EOSINOPHILS % (AUTO) 0 % (0-10); HEMATOCRIT 44 % (35-52); HEMOGLOBIN 15.7 G/DL (11.5-16.0); LYMPHOCYTES # (AUTO) 1.9 X 10^3 (1.0-4.0); LYMPHOCYTES % (AUTO) 16 % (12-44); MEAN CORPUSCULAR HEMOGLOBIN 31 PG (25-34); MEAN CORPUSCULAR HGB CONC 36 G/DL (32-36); MEAN CORPUSCULAR VOLUME 86 FL (80-99); MEAN PLATELET VOLUME 9.8 FL (7.4-10.4); MONOCYTES # (AUTO) 1.2 X 10^3 (0.0-1.0); MONOCYTES % (AUTO) 10 % (0-12); NEUTROPHILS # (AUTO) 8.7 X 10^3 (1.8-7.8); NEUTROPHILS % (AUTO) 74 % (42-75); PLATELET COUNT 245 10^3/uL (130-400); RED CELL DISTRIBUTION WIDTH 12.2 % (10.0-14.5); WHITE BLOOD COUNT 11.8 10^3/uL (4.3-11.0)
[2018-07-29] MEDS ORDERED: ONDANSETRON 4 MG/2 ML (SDV) Z0FRAN IVP ONE (12:45)
[2018-07-29 12:47] LABS: BUN/CREATININE RATIO 9; CALCIUM 10.7 MG/DL (8.5-10.1); CARBON DIOXIDE 22 MMOL/L (21-32); CHLORIDE 100 MMOL/L (98-107); CREATININE SERUM 0.69 MG/DL (0.60-1.30); GFR ESTIMATED > 60; GLUCOSE 224 MG/DL (70-105); POTASSIUM 4.2 MMOL/L (3.6-5.0); SODIUM 137 MMOL/L (135-145)
--- NOTE | 2018-07-29 13:03 | Diagnostic Imaging Report ---
CLINICAL INDICATION: Patient was told by doctor that she had double ear infection and swelling in throat. Last night throat felt like it was swelling even more and today having trouble swallowing and feels like she is choking. EXAM: Axial CT scan of the neck and chest performed without IV contrast. Sagittal and coronal reformatted images are created. COMPARISON: None. FINDINGS Neck CT: There is mild thickening of the aryepiglottic folds which is symmetric, and may just be related to patient body habitus. There is also slight narrowing of the glottis region. Unknown if this is mechanically patient induced. Otherwise, the nasopharynx, oropharynx, hypopharynx, and laryngeal soft tissue structures are relatively symmetric otherwise unremarkable. The salivary glands and thyroid gland are unremarkable. There are multiple bilateral neck lymph nodes which are not significantly enlarged by size criteria. There is an 11 mm x 7 mm lymph node in the left level IIb region. The visualized portions of the oral cavity, tongue, sublingual space, and submandibular regions are unremarkable. There is no neck soft tissue fluid collection or fat stranding. Visualized portions of the orbits and intracranial structures are unremarkable. Paranasal sinuses are unremarkable. Mastoid air cells are clear. There is cervical spine degenerative disease including straightening of the cervical spine posture. There are cervical spine vertebral body spurs and facet arthropathy. There is at least moderate bilateral C5-C6 neural foramen narrowing due to uncinate spurs. Chest CT: There is mild dependent atelectasis involving the posterior aspects of both lungs. There is a parenchymal band in left lung base also suspected to represent atelectasis. There is no pleural effusion or pneumothorax. Pulmonary vasculature and bronchi show no significant abnormality. There is no mediastinal or hilar lymphadenopathy. There is small amount of fluid in the pericardial region seen. There is no axillary lymphadenopathy. The extrathoracic soft tissue shows no significant abnormality. There is a roughly 8 mm low-density area involving the right lobe of liver near the dome. This may represent a cyst. Remainder of the visualized upper abdominal structures shows no significant abnormality. There are hypertrophic spurs involving the thoracic spine. IMPRESSION: 1: There is mild thickening of the aryepiglottic folds which is symmetric and may be related to patient body habitus. 2: There is slight narrowing of the glottis region. Unknown if this is mechanically patient induced. There is no mass, fluid collection, or fat stranding seen. 3: There is no lymphadenopathy. 4: Otherwise, the remainder of the neck and chest CT scan shows no acute finding. Dictated by: Dictated on workstation # [id number]
[2018-07-29] MEDS ORDERED: PRD20T PO (13:08)
[2018-07-29] MEDS ORDERED: RX-ACETAMINOPHEN/CODEINE TAB PPK #4 PO SCH (13:15)
[2018-07-29] MEDS ORDERED: predniSONE 20 MG TAB PO ONE (13:15)
[2018-07-29 13:40] VITALS: BP 159/91
== END 2018-07-29 13:40 | disposition home or self-care (01) ==
LOC: EDUNIT# 11:17 → ER 11:18
DX: J20.9 Acute bronchitis, unspecified (principal); Z88.2 Allergy status to sulfonamides
CPT/HCPCS: 36415; 70490; 71250; 80048; 85025; 96365; 96375

== ENCOUNTER → 2019-04-17 | Outpatient (CLI) | payer BC ==
[~2019-04-17] MED LIST: PRD20T PO
--- NOTE | 2019-04-17 16:29 | Diagnostic Imaging Report ---
INDICATION: Routine screening. COMPARISON: Comparison is made with prior mammogram from 02/03/2018 and 06/06/2015. 2-D and 3-D bilateral screening mammography was performed. The current study was also evaluated with a Computer Aided Detection (CAD) system. 3-D tomosynthesis was also performed and reviewed. FINDINGS: Both breasts are heterogeneously dense, limiting the sensitivity of mammography. No mass or malignant-appearing microcalcifications are seen. The axillae are unremarkable. IMPRESSION: No mammographic features suspicious for malignancy are identified. ACR BI-RADS Category 1: Negative. Result letter will be mailed to the patient. Note: At least 10% of breast cancer is not imaged by mammography. Dictated by: Dictated on workstation # [id number]
== END ==
LOC: RAD 09:59
PROVIDERS: ATTEND Nurse Practitioner Primary Care
DX: Z12.31 Encounter for screening mammogram for malignant neoplasm of breast (principal)
CPT/HCPCS: 77067

== ENCOUNTER → 2020-04-18 | Outpatient (CLI) | payer BC ==
--- NOTE | 2020-04-18 12:24 | Diagnostic Imaging Report ---
INDICATION: Routine screening. COMPARISON: 04/17/2019 and 02/03/2018. TECHNIQUE: 2D and 3D bilateral screening mammography was performed with CAD. FINDINGS: Both breasts are heterogeneously dense, limiting the sensitivity of mammography. The parenchymal pattern is stable. No mass or malignant appearing microcalcifications are seen. The axillae are unremarkable. IMPRESSION: No mammographic features suspicious for malignancy are identified. ACR BI-RADS Category 1: Negative. Result letter will be mailed to the patient. Note: At least 10% of breast cancer is not imaged by mammography. Dictated by: Dictated on workstation # [id number]
== END ==
LOC: RAD 10:00
PROVIDERS: ATTEND Nurse Practitioner Family
DX: Z12.31 Encounter for screening mammogram for malignant neoplasm of breast (principal)
CPT/HCPCS: 77063; 77067

== ENCOUNTER → 2021-06-02 | Outpatient (CLI) | payer BC ==
--- NOTE | 2021-06-02 10:43 | Diagnostic Imaging Report ---
EXAM: Digital mammogram, bilateral screening. COMPARISON: This study was compared to the prior exams of 04/18/2020, 04/17/2019 and 02/03/2018. At this time, there are no current complaints. The current study was also evaluated with a Computer Aided Detection (CAD) system. FINDINGS: The fibroglandular tissue in both breasts is heterogeneously dense. This does limit the sensitivity of this exam. Overall, there does not appear to have been any significant change when compared to the prior study. No primary or secondary sign of malignancy is noted. IMPRESSION: There is no radiographic evidence for malignancy. ACR category 1 ACR BI-RADS Category 1: Negative. Result letter will be mailed to the patient. Note: At least 10% of breast cancer is not imaged by mammography. Dictated by: Dictated on workstation # [id number]
== END ==
LOC: RAD 08:45
PROVIDERS: ATTEND Nurse Practitioner Family
DX: Z12.31 Encounter for screening mammogram for malignant neoplasm of breast (principal)
CPT/HCPCS: 77063; 77067

== ENCOUNTER → 2022-06-21 | Outpatient (CLI) | payer BC ==
--- NOTE | 2022-06-21 18:34 | Diagnostic Imaging Report ---
INDICATION: Routine screening. COMPARISON: Prior mammograms from 06/02/2021 and 04/18/2020. EXAMINATION: 2D and 3D bilateral screening mammography was performed with CAD. The current study was also evaluated with a Computer Aided Detection (CAD) system. FINDINGS: Both breasts are heterogeneously dense, limiting the sensitivity of mammography. No mass or malignant-appearing microcalcifications are seen. Axillae are unremarkable. IMPRESSION: No mammographic features suspicious for malignancy are identified. ACR BI-RADS Category 1: Negative. Result letter will be mailed to the patient. Note: At least 10% of breast cancer is not imaged by mammography. Dictated by: Dictated on workstation # [id number]
== END ==
LOC: RAD 10:45
PROVIDERS: ATTEND Nurse Practitioner Family
DX: Z12.31 Encounter for screening mammogram for malignant neoplasm of breast (principal)
CPT/HCPCS: 77063; 77067

== ENCOUNTER → 2023-06-24 | Outpatient (CLI) | payer BC ==
--- NOTE | 2023-06-24 08:41 | Diagnostic Imaging Report ---
INDICATION: Routine screening. COMPARISON: 06/21/2022 and 06/02/2021. TECHNIQUE: 2D and 3D bilateral screening mammography was performed with CAD. FINDINGS: Both breasts remain heterogeneously dense, limiting the sensitivity of mammography. The parenchymal pattern is stable. No mass or malignant-appearing microcalcifications are seen. There are occasional benign calcifications in the right breast. The axillae are unremarkable. IMPRESSION: No mammographic features suspicious for malignancy are identified. ACR BI-RADS Category 2: Benign findings. Result letter will be mailed to the patient. Note: At least 10% of breast cancer is not imaged by mammography. Dictated by: Dictated on workstation # [id number]
== END ==
LOC: RAD 07:39
PROVIDERS: ATTEND Nurse Practitioner Family
DX: Z12.31 Encounter for screening mammogram for malignant neoplasm of breast (principal)
CPT/HCPCS: 77063; 77067